=== PATIENT | female | born 1970 ===

== ENCOUNTER 2024-09-12 17:00 | Inpatient (IN) | payer OTHER, SELFPAY ==
[2024-09-12 17:25] VITALS: BP 126/77; PULSE 61; RESP 18; TEMP 36.4; O2SAT 99
[2024-09-12 17:59] VITALS: BMI 31.4
--- NOTE | 2024-09-12 18:52 | PC.ADMIT ---
Bonita was admitted to M3 from [facility] on 09/12/24 for treatment of Bipolar D/O, Cocaine Use and Opioid Use Disorder on a 12b. Skin check completed by this RN and Arelis Andre RN, which revealed bruises on her L clavicle area due to recent fracture. She reports she received the fracture appox 2 weeks ago while in the hospital and was dropped off the bed. Admission not completed and passed on to oncoming RN. She denied SI/HI/AH but reports constant VH of shadows and spirits that do not go away. She has a sling for her L clavicle fracture and was placed on 5 minute checks. She was accepting of the flu shot but was verified that she has received prior to arrival on 09/08/24 by pharmacy.
--- NOTE | 2024-09-12 18:53 | HE.PHANOTE ---
METHADONE Dose: 170mg, last dose 09/12/24 @0800 at [facility] geoff Pedraza RN.
[2024-09-12 19:33] LABS: Alanine Aminotransferase 27 U/L (0-31); Albumin Level 3.6 g/dL (3.5-5.0); Alkaline Phosphatase 115 U/L (39-117); Anion Gap 15 (12-20); Aspartate Amino Transferase 25 U/L (5-31); Bilirubin Total 0.5 mg/dL (0.0-1.0); Blood Urea Nitrogen 26 mg/dL (9-16); Calcium 8.9 mg/dL (8.4-10.2); Carbon Dioxide 28 mmol/L (22-29); Chloride 103 mmol/L (96-108); Creatinine Clr Calc Pharmacy 88.1; Estimated Glomerular Filt Rate > 60; Glucose Random 80 mg/dL (60-115); Potassium 4.1 mmol/L (3.3-5.1); Sodium 142 mmol/L (135-145); Total Protein 7.8 g/dL (6.5-8.0)
[2024-09-12 20:00] VITALS: BP 100/60; PULSE 60; RESP 16; TEMP 36.4; O2SAT 97
[2024-09-12] MEDS: Thiamine HCL 100 MG TABLET PO (20:14)
[2024-09-12] MEDS: Loperamide HCl 2 MG CAPSULE PO (20:15)
[2024-09-12] MEDS: levETIRAcetam 500 MG TABLET PO (20:15)
[2024-09-12] MEDS: oxyCODONE HCl Immed Release 5 MG TABLET 10 MG PO (20:15)
[2024-09-12] MEDS: Gabapentin 300 MG CAPSULE PO (20:16)
[2024-09-12] MEDS: OLANZapine 5 MG TABLET PO (20:16)
[2024-09-12] MEDS: valACYclovir HCL 500 MG TABLET PO (20:16)
[2024-09-12] MEDS: cloNIDine HCL 0.1 MG TABLET PO (20:16)
[2024-09-12] MEDS: Divalproex Sodium ER 500 MG TAB.ER.24H PO (20:17)
[2024-09-12] MEDS: traZODone HCL 50 MG TABLET PO (20:28)
[2024-09-12] MEDS: LORazepam 1 MG TABLET 2 MG PO (20:29)
[2024-09-13] MEDS: Loperamide HCl 2 MG CAPSULE PO ×2 (05:45→21:01)
[2024-09-13] MEDS: Omeprazole 20 MG CAPSULE.DR PO (05:45)
[2024-09-13] MEDS: hydrOXYzine HCL 25 MG TABLET PO ×2 (05:46→22:23)
[2024-09-13 08:00] VITALS: BP 134/75; PULSE 75; RESP 14; TEMP 36.6; O2SAT 100
--- NOTE | 2024-09-13 08:36 | HO.PSYADMNOT ---
HPI Date of Service: 09/13/24 Chief Complaint: Unspecified depressive disorder Sources of Information: patient interviewed (saw pt who was too obtunded to interview, then when she ate lunch became too agitated to interview- only perseverating on her spilled brownie sunday), chart reviewed and crisis/core team assessment reviewed HPI Subjective Notes: Section 12B Healthcare Proxy: No Guardianship: No Medical Problems Affecting Mental Status: Yes (broken ? clavicle) Narrative: 54 yo WF who presented from [facility] where she is known- co visual and auditory hallucinations when awake pacing, otherwise sedated co anxiety depression and suicidal thinking at [facility] ER- Here on unit she is behaving irratically with diarrhea and not attempting to manage her ADLs- spilled apple juice and crackers on floor next to her bed- later brownie sunday on floor that she accuses others of doing- Was so sedated when she was awoken for interview with me she sat up and fell asleep sitting up almost immediately- Had her seen by Claritza Juarez who agreed with holding all sedating medications- like gabapentin , lorazepam (not alcohol primary problem) and hold percocet- reports constant VH of shadows and spirits that do not go away. on intake but pt has not participated fully in nursing intake or with this provider's interview. Nursing reports this diarrhea has been know to [facility] nursing in past behavior. Past Psychiatric History: very little information though hospitalized at [facility] 2 wks ago where she got broken clavicle- Medical Evaluation Reviewed: Hospitalist Isabelal Pending on 5 min checks due to sling for clavicle. [facility] Narrative: further information needed- Family History: unobtainable Social History: unknown Substance History: hx opiate abuse - cocaine Trauma History: unobtained Diagnostics Vital Signs (24Hr): Vital Signs - 24 hr 09/12/24 17:25 09/12/24 20:00 Temperature 97.6 F 97.5 F Pulse Rate 61 60 Respiratory Rate 18 16 Blood Pressure 126/77 100/60 Pulse Oximetry 99 97 Oxygen Delivery Method Room Air Room Air BMI result Body Mass Index 31.4 Labs 09/12/24 19:10 Labs: Laboratory Results - last 48 hr 09/12/24 19:10 Sodium 142 Potassium 4.1 Chloride 103 Carbon Dioxide 28 Anion Gap 15 BUN 26 H Creatinine 0.75 Estim Creat Clear Calc 88.1 Estimated GFR > 60 Random Glucose 80 Calcium 8.9 Total Bilirubin 0.5 AST 25 ALT 27 Alkaline Phosphatase 115 Total Protein 7.8 Albumin 3.6 Meds/Allergies Meds Home Medications ?Medication ?Instructions ?Recorded ?Confirmed ?Type albuterol sulfate 90 mcg/actuation 90 mcg inhalation QID PRN 09/12/24 09/12/24 History aerosol inhaler (Ventolin HFA) Shortness Of Breath Or Wheezing aspirin 81 mg tablet,delayed 81 mg PO DAILY 09/12/24 09/12/24 History release clonidine HCl 0.1 mg tablet 0.1 mg 3XD 09/12/24 09/12/24 History divalproex 500 mg tablet,extended 500 mg PO BEDTIME 09/12/24 09/12/24 History release 24 hr fluticasone propionate 110 110 mcg inhalation BID 09/12/24 09/12/24 History mcg/actuation HFA aerosol inhaler levetiracetam 500 mg tablet 500 mg PO USEASDIRECTD 09/12/24 09/12/24 History methadone 10 mg/mL oral concentrate 170 mg PO DAILY 09/12/24 09/12/24 History olanzapine 5 mg tablet 5 mg PO BEDTIME 09/12/24 09/12/24 History oxycodone 10 mg tablet 10 mg PO Q6H PRN pain 09/12/24 09/12/24 History pantoprazole 40 mg tablet,delayed 40 mg PO DAILY 09/12/24 09/12/24 History release trazodone 50 mg tablet 50 mg PO BEDTIME PRN insomnia 09/12/24 09/12/24 History valacyclovir 500 mg tablet 500 mg PO USEASDIRECTD 09/12/24 09/12/24 History venlafaxine 75 mg capsule,extended 75 mg PO DAILY 09/12/24 09/12/24 History release 24 hr Allergies Allergies Allergy/AdvReac Type Severity Reaction Status Date / Time Iodinated Contrast Media Allergy Unknown Verified 09/12/24 17:21 [Contrast Dye] onion Allergy Unknown Verified 09/12/24 17:21 Penicillins Allergy Unknown Verified 09/12/24 17:21 Mental Status Exam Mental Status Exam Patient Appearance: Disheveled and Unkempt Patient Orientation: Person Level of Consciousness: Obtunded Patient Behavior: Restless, Resistive to Care, Confused and Poor Eye Contact Mood Description: Angry (irritable) Affect Description: Labile Patient Cognition Impaired: Yes Ability to Follow Directions: Poor Speech Pattern: Slurred Hallucinations: Auditory and Visual Thought Process: Distracted Thought Content: positive for Disorganized Depressive Symptoms: Diff. Making Decisions Abnormal Motor Activity Signs and Symptoms: Restlessness Judgement: Poor Assessment & Plan Assessment & Plan (1) Opioid use disorder, severe, dependence: Status: Acute Code(s): F11.20 - Opioid dependence, uncomplicated Assessment and Plan: on methadone, seen by addiction medicine who will split dose for methadone tomorrow holding percocet for now if broke clavicle 2 wks ago unclear if needed- also on methadone (2) Mood disorder: Status: Acute Code(s): F39 - Unspecified mood [affective] disorder Assessment and Plan: hold gabapentin given excess sedation offered olanzapine hs and prn as alternative for now (3) Cocaine abuse: Status: Acute Code(s): F14.10 - Cocaine abuse, uncomplicated Plan further data gathering when patient more able to cooperate- Patient educated on: substance abuse Informed Consent: further education needed Reason for continued inpatient stay Substantial Risk for: inability to function and rapid decompensation Statement Statement: I have reviewed the history and physical and performed a pertinent examination on my patient. No changes have occurred unless specified. If the History and Physical was not performed prior to admission, the Hospitalist's service will be consulted for completing the admission physical. Time Spent With Patient Time: Total time managing care of this patient today ____ minutes.
[2024-09-13] MEDS: methADONE HCl 20 MG/2 ML ORAL.CONC 170 MG PO (08:40)
[2024-09-13] MEDS: Thiamine HCL 100 MG TABLET PO (09:21)
[2024-09-13] MEDS: Folic Acid 1 MG TABLET PO (09:21)
[2024-09-13] MEDS: Gabapentin 300 MG CAPSULE PO (09:21)
[2024-09-13] MEDS: valACYclovir HCL 500 MG TABLET PO ×2 (09:22→21:01)
[2024-09-13] MEDS: levETIRAcetam 500 MG TABLET PO ×2 (09:22→21:01)
[2024-09-13] MEDS: Aspirin Enteric Coated 81 MG TABLET.DR PO (09:22)
[2024-09-13] MEDS: Venlafaxine HCl ER 75 MG CAP.ER.24H PO (09:22)
[2024-09-13 09:23] VITALS: BP 134/75
[2024-09-13] MEDS: cloNIDine HCL 0.1 MG TABLET PO (09:23)
[2024-09-13] MEDS: oxyCODONE HCl Immed Release 5 MG TABLET 10 MG PO (09:36)
[2024-09-13] MEDS: LORazepam 1 MG TABLET PO (09:36)
[2024-09-13 12:39] VITALS: BP 124/89; PULSE 81; RESP 16; TEMP 36.9; O2SAT 97
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
[2024-09-13] MEDS: OLANZapine 5 MG TABLET PO ×3 (17:20→22:23)
[2024-09-13 20:00] VITALS: BP 149/76; PULSE 100; RESP 16; TEMP 36.6; O2SAT 96
[2024-09-13] MEDS: Divalproex Sodium ER 500 MG TAB.ER.24H PO (21:01)
[2024-09-13] MEDS: traZODone HCL 50 MG TABLET PO (21:02)
[2024-09-13] MEDS: Acetaminophen 325 MG TABLET 650 MG PO (22:22)
--- NOTE | 2024-09-14 00:56 | PC.NURSE ---
high fall intervention added-patient is on keppra and reports HX of seizure.
[2024-09-14 08:00] VITALS: BP 137/94; PULSE 79; RESP 15; TEMP 36.5; O2SAT 97
[2024-09-14] MEDS: methADONE HCl 20 MG/2 ML ORAL.CONC 85 MG PO (08:07)
[2024-09-14] MEDS: Fluticasone Propionate 100 MCG BLST.W.DEV 1 PUFF INHALE (08:32)
[2024-09-14] MEDS: Aspirin Enteric Coated 81 MG TABLET.DR PO (08:34)
[2024-09-14] MEDS: Venlafaxine HCl ER 75 MG CAP.ER.24H PO (08:34)
[2024-09-14] MEDS: Thiamine HCL 100 MG TABLET PO (08:34)
[2024-09-14] MEDS: valACYclovir HCL 500 MG TABLET PO ×2 (08:34→20:21)
[2024-09-14] MEDS: Omeprazole 20 MG CAPSULE.DR PO (08:35)
[2024-09-14] MEDS: Folic Acid 1 MG TABLET PO (08:35)
[2024-09-14] MEDS: levETIRAcetam 500 MG TABLET PO ×2 (08:35→20:21)
[2024-09-14] MEDS: OLANZapine 5 MG TABLET PO ×2 (09:14→20:21)
--- NOTE | 2024-09-14 09:25 | HO.PSYCHPN ---
Subjective Subjective Date of Service: 09/14/24 Reason For Visit: Unspecified depressive disorder Subjective Notes: Section 12B Healthcare Proxy: No Guardianship: No Medical Problems Affecting Mental Status: No (though she says she has pain in clavicle- from break) Interim History: 54 patient agitated most of day around issues of medications- when came in was overly sedated to point that I could not do interview- and patient couldn't be roused- So meds ativan, percocet and gabapentin where held yesterday- and today methadone was split dose- Angry about us giving lower dose saying that's illegal and your going to kill me Gave test dose of 200mg gabapentin this am and pt was still awake until 2nd dose methadone at 2pm then fell asleep - again- We have been offering olanzapine prns- She told me she [place] and wishes she had not been found and - she was giving up anyway- Wonder if she might benefit from sec 35? Claritza Juarez, instructional services specialist , has been following patient closely with this provider over last day. Medication Compliance: Yes Side effects from medications: Yes (oversedation, ) Attending Groups: No (pt intrussive with staff and patients alike and generally disruptive on unit) Review of Systems Acute medical concerns: No outside over medication and broken clavicle- where she co xs pain and has been on percocet x 2 wks we have now held this Medical Review of Systems: unchanged Mental Status Exam Mental Status Exam Patient Appearance: Disheveled and Unkempt Patient Orientation: Person, Place and Situation Level of Consciousness: Awake Patient Behavior: Talkative, Hyperactive, Restless, Belligerent (at times), Swearing, Resistive to Care, Invasion - Personal Space, Distractible, Impulsive and Poor Eye Contact Mood Description: Hostile and Anxious Affect Description: Labile Patient Cognition Impaired: No Ability to Follow Directions: Poor Speech Pattern: Rapid and Poor Articulation Hallucinations: None Thought Process: Distracted Thought Content: positive for Flight of Ideas and positive for Disorganized Depressive Symptoms: Increased Irritability and Difficulty Concentrating Abnormal Motor Activity Signs and Symptoms: Hyperactivity and Restlessness Judgement: Poor Diagnostics Vital Signs (24Hr): Vital Signs - 24 hr 09/13/24 12:39 09/13/24 20:00 09/14/24 08:00 Temperature 98.4 F 97.8 F 97.7 F Pulse Rate 81 100 79 Respiratory Rate 16 16 15 Blood Pressure 124/89 149/76 H 137/94 H Pulse Oximetry 97 96 97 Oxygen Delivery Method Room Air Room Air Room Air BMI result Body Mass Index 31.4 Labs 09/12/24 19:10 Labs: Laboratory Results - last 48 hr 09/12/24 19:10 Sodium 142 Potassium 4.1 Chloride 103 Carbon Dioxide 28 Anion Gap 15 BUN 26 H Creatinine 0.75 Estim Creat Clear Calc 88.1 Estimated GFR > 60 Random Glucose 80 Calcium 8.9 Total Bilirubin 0.5 AST 25 ALT 27 Alkaline Phosphatase 115 Total Protein 7.8 Albumin 3.6 Medications Medications Current Medications Acetaminophen (Acetaminophen 325 Mg Tablet) 650 mg PO Q6H PRN PRN Reason: Headache/Pain Mild Scale (1-9) Last Admin: 09/13/24 22:22 Dose: 650 mg Al Hydroxide/Mg Hydroxide (Magnesium Hydrox/Alum Hydrox 30 Ml Oral.Susp) 30 ml PO Q6H PRN PRN Reason: Heartburn/Nausea Albuterol Sulfate (Albuterol Sulfate 90 Mcg 8 Gm Inhaler) 1 puff INHALE QID PRN PRN Reason: Shortness Of Breath Or Wheezing Aspirin (Aspirin Enteric Coated 81 Mg Tablet.Dr) 81 mg PO DAILY [facility] Last Admin: 09/14/24 08:34 Dose: 81 mg Divalproex Sodium (Divalproex Sodium Er 500 Mg Tab.Er.24h) 500 mg PO BEDTIME [facility] Last Admin: 09/13/24 21:01 Dose: 500 mg Fluticasone Propionate (Fluticasone Propionate 100 Mcg Blst.W.Dev) 1 puff INHALE RBID [facility] Last Admin: 09/14/24 08:32 Dose: 1 puff Folic Acid (Folic Acid 1 Mg Tablet) 1 mg PO DAILY [facility] Last Admin: 09/14/24 08:35 Dose: 1 mg Gabapentin (Gabapentin 300 Mg Capsule) 300 mg PO TID [facility] Stop: 09/14/24 23:00 Last Admin: 09/13/24 15:04 Dose: Not Given Hydroxyzine HCl (Hydroxyzine Hcl 25 Mg Tablet) 25 mg PO Q6H PRN PRN Reason: mild anxiety Last Admin: 09/13/24 22:23 Dose: 25 mg Ibuprofen (Ibuprofen 800 Mg Tablet) 800 mg PO Q8H PRN PRN Reason: Moderate to severe pain Levetiracetam (Levetiracetam 500 Mg Tablet) 500 mg PO BID [facility] Last Admin: 09/14/24 08:35 Dose: 500 mg Loperamide HCl (Loperamide Hcl 2 Mg Capsule) 2 mg PO Q4H PRN PRN Reason: loose stool Last Admin: 09/13/24 21:01 Dose: 2 mg Magnesium Hydroxide (Milk Of Magnesia 30 Ml Oral.Susp) 30 ml PO DAILY PRN PRN Reason: Constipation Methadone HCl (Methadone Hcl 20 Mg/2 Ml Oral.Conc) 85 mg PO DAILY@0800 [facility] Last Admin: 09/14/24 08:07 Dose: 85 mg Nicotine (Nicotine 21 Mg Patch.Td24) 21 mg TRANSDERMA DAILY PRN PRN Reason: smoking cessation Nicotine Polacrilex (Nicotine Polacrilex 2 Mg Gum) 4 mg BUCCAL Q2H PRN PRN Reason: Nicotine Cravings Olanzapine (Olanzapine 5 Mg Tablet) 5 mg PO BEDTIME [facility] Last Admin: 09/13/24 21:02 Dose: 5 mg Olanzapine (Olanzapine 5 Mg Tablet) 5 mg PO Q4H PRN PRN Reason: Anxiety Last Admin: 09/14/24 09:14 Dose: 5 mg Omeprazole (Omeprazole 20 Mg Capsule.Dr) 20 mg PO DAILY@0630 [facility] Last Admin: 09/14/24 08:35 Dose: 20 mg Oxycodone HCl (Oxycodone Hcl Immed Release 5 Mg Tablet) 10 mg PO Q6H PRN PRN Reason: severe pain for clavical fract Last Admin: 09/13/24 09:36 Dose: 10 mg Thiamine HCl (Thiamine Hcl 100 Mg Tablet) 100 mg PO DAILY [facility] Last Admin: 09/14/24 08:34 Dose: 100 mg Trazodone HCl (Trazodone Hcl 50 Mg Tablet) 50 mg PO BEDTIME MRX1 PRN PRN Reason: Insomnia Last Admin: 09/13/24 21:02 Dose: 50 mg Trazodone HCl (Trazodone Hcl 50 Mg Tablet) 50 mg PO BEDTIME PRN PRN Reason: insomnia Valacyclovir HCl (Valacyclovir Hcl 500 Mg Tablet) 500 mg PO BID [facility] Last Admin: 09/14/24 08:34 Dose: 500 mg Venlafaxine HCl (Venlafaxine Hcl Er 75 Mg Cap.Er.24h) 75 mg PO DAILY [facility] Last Admin: 09/14/24 08:34 Dose: 75 mg Allergies Allergies Allergy/AdvReac Type Severity Reaction Status Date / Time Iodinated Contrast Media Allergy Unknown Verified 09/12/24 17:21 [Contrast Dye] onion Allergy Unknown Verified 09/12/24 17:21 Penicillins Allergy Unknown Verified 09/12/24 17:21 Assessment & Plan Assessment & Plan (1) Opioid use disorder, severe, dependence: Status: Acute Code(s): F11.20 - Opioid dependence, uncomplicated Assessment and Plan: on methadone, seen by addiction medicine who will split dose for methadone tomorrow holding percocet for now if broke clavicle 2 wks ago unclear if needed- also on methadone (2) Mood disorder: Status: Acute Code(s): F39 - Unspecified mood [affective] disorder Assessment and Plan: hold gabapentin given excess sedation offered olanzapine hs and prn as alternative for now (3) Cocaine abuse: Status: Acute Code(s): F14.10 - Cocaine abuse, uncomplicated Plan further data gathering when patient more able to cooperate- Patient educated on: medication risk/benefits and substance abuse Informed Consent: further education needed Reason for continued inpatient stay Substantial Risk for: harm to self, inability to function and med/psych decompensation Time Spent With Patient Time: Total time managing care of this patient today ____ minutes.
[2024-09-14] MEDS: Gabapentin 100 MG CAPSULE 200 MG PO (10:25)
[2024-09-14] MEDS: Nicotine 21 MG PATCH.TD24 TRANSDERMA (10:31)
[2024-09-14] MEDS: methADONE HCl 20 MG/2 ML ORAL.CONC 60 MG PO (13:53)
[2024-09-14] MEDS: Ibuprofen 800 MG TABLET PO (14:38)
--- NOTE | 2024-09-14 15:11 | PM.EVENT ---
Event Note Date of Service: 09/14/24 Event Note: Addiction note: Discussed case with RN and covering provider (Dr. HURST) Patient more alert today overall, following methadone 85mg dose in AM Added methadone 60mg this afternoon for a total of 145mg After second dose of methadone, RN notified t/w that patient was appearing more sedated, eyes closed while standing Plan: -methadone 100mg tomorrow AM (09/15) -no PM dose -utilize PRN meds for agitation Time Spent With Patient Time: Total time managing care of this patient today ____ minutes.
[2024-09-14 19:43] VITALS: BP 125/73; PULSE 72; TEMP 36.6; O2SAT 96
[2024-09-14] MEDS: traZODone HCL 50 MG TABLET PO (20:21)
[2024-09-14] MEDS: hydrOXYzine HCL 25 MG TABLET PO (20:21)
[2024-09-14] MEDS: Divalproex Sodium ER 500 MG TAB.ER.24H PO (20:21)
[2024-09-14] MEDS: Acetaminophen 325 MG TABLET 650 MG PO (20:22)
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
[2024-09-15] MEDS: hydrOXYzine HCL 25 MG TABLET PO ×2 (03:40→20:27)
[2024-09-15] MEDS: Omeprazole 20 MG CAPSULE.DR PO (05:31)
[2024-09-15 07:45] VITALS: BP 174/82; PULSE 70; RESP 16; TEMP 36.4; O2SAT 99
[2024-09-15] MEDS: methADONE HCl 20 MG/2 ML ORAL.CONC 100 MG PO (08:05)
[2024-09-15] MEDS: levETIRAcetam 500 MG TABLET PO ×2 (09:19→20:27)
[2024-09-15] MEDS: Aspirin Enteric Coated 81 MG TABLET.DR PO (09:19)
[2024-09-15] MEDS: Thiamine HCL 100 MG TABLET PO (09:19)
[2024-09-15] MEDS: valACYclovir HCL 500 MG TABLET PO ×2 (09:19→20:27)
[2024-09-15] MEDS: Folic Acid 1 MG TABLET PO (09:20)
[2024-09-15] MEDS: Venlafaxine HCl ER 75 MG CAP.ER.24H PO (09:20)
[2024-09-15] MEDS: Fluticasone Propionate 100 MCG BLST.W.DEV 1 PUFF INHALE (09:22)
[2024-09-15] MEDS: Nicotine 21 MG PATCH.TD24 TRANSDERMA (09:24)
[2024-09-15] MEDS: OLANZapine 5 MG TABLET PO ×3 (10:14→20:27)
--- NOTE | 2024-09-15 12:38 | P.PNPSI_ITS ---
Subjective Subjective Date of Service: 09/15/24 Reason For Visit: Unspecified depressive disorder Subjective Notes: Section 12B Interim History: Active on unit. 12b up on 09/17/24. Pt reports feeling frustrated because my meds were changed . focused on medications. Pt stated, I don't want to kill myself. I want my meds back to where they were . Discussed notes reported pt was sedated over the weekend; which pt denies and states her eyes are closed because I'm channeling spirits . denies SI/HI/VH/AH. Medication Compliance: Yes Side effects from medications: No Attending Groups: Intermittent Mental Status Exam Mental Status Exam Narrative: Pt is alert and oriented; behavior is cooperative, irritable; dressed in casual attire; mood is described as frustrated ; eye contact appropriate; Speech is normal rate, loud volume; thought process is goal directed; Thought content is focused on medications; denies SI/HI/VH/AH. Diagnostics Vital Signs (24Hr): Vital Signs - 24 hr 09/14/24 19:43 09/15/24 07:45 Temperature 97.8 F 97.5 F Pulse Rate 72 70 Respiratory Rate 16 Blood Pressure 125/73 174/82 H Pulse Oximetry 96 99 Oxygen Delivery Method Room Air Room Air BMI result Body Mass Index 31.4 Labs 09/12/24 19:10 Medications Medications Current Medications Acetaminophen (Acetaminophen 325 Mg Tablet) 650 mg PO Q6H PRN PRN Reason: Headache/Pain Mild Scale (1-9) Last Admin: 09/14/24 20:22 Dose: 650 mg Al Hydroxide/Mg Hydroxide (Magnesium Hydrox/Alum Hydrox 30 Ml Oral.Susp) 30 ml PO Q6H PRN PRN Reason: Heartburn/Nausea Albuterol Sulfate (Albuterol Sulfate 90 Mcg 8 Gm Inhaler) 1 puff INHALE QID PRN PRN Reason: Shortness Of Breath Or Wheezing Aspirin (Aspirin Enteric Coated 81 Mg Tablet.Dr) 81 mg PO DAILY [facility] Last Admin: 09/15/24 09:19 Dose: 81 mg Divalproex Sodium (Divalproex Sodium Er 500 Mg Tab.Er.24h) 500 mg PO BEDTIME [facility] Last Admin: 09/14/24 20:21 Dose: 500 mg Fluticasone Propionate (Fluticasone Propionate 100 Mcg Blst.W.Dev) 1 puff INHALE RBID [facility] Last Admin: 09/15/24 09:22 Dose: 1 puff Folic Acid (Folic Acid 1 Mg Tablet) 1 mg PO DAILY [facility] Last Admin: 09/15/24 09:20 Dose: 1 mg Hydroxyzine HCl (Hydroxyzine Hcl 25 Mg Tablet) 25 mg PO Q6H PRN PRN Reason: mild anxiety Last Admin: 09/15/24 03:40 Dose: 25 mg Ibuprofen (Ibuprofen 800 Mg Tablet) 800 mg PO Q8H PRN PRN Reason: Moderate to severe pain Last Admin: 09/14/24 14:38 Dose: 800 mg Levetiracetam (Levetiracetam 500 Mg Tablet) 500 mg PO BID [facility] Last Admin: 09/15/24 09:19 Dose: 500 mg Loperamide HCl (Loperamide Hcl 2 Mg Capsule) 2 mg PO Q4H PRN PRN Reason: loose stool Last Admin: 09/13/24 21:01 Dose: 2 mg Magnesium Hydroxide (Milk Of Magnesia 30 Ml Oral.Susp) 30 ml PO DAILY PRN PRN Reason: Constipation Methadone HCl (Methadone Hcl 20 Mg/2 Ml Oral.Conc) 100 mg PO DAILY@0800 [facility] Last Admin: 09/15/24 08:05 Dose: 100 mg Nicotine (Nicotine 21 Mg Patch.Td24) 21 mg TRANSDERMA DAILY PRN PRN Reason: smoking cessation Last Admin: 09/15/24 09:24 Dose: 21 mg Nicotine Polacrilex (Nicotine Polacrilex 2 Mg Gum) 4 mg BUCCAL Q2H PRN PRN Reason: Nicotine Cravings Olanzapine (Olanzapine 5 Mg Tablet) 5 mg PO BEDTIME [facility] Last Admin: 09/14/24 20:21 Dose: 5 mg Olanzapine (Olanzapine 5 Mg Tablet) 5 mg PO Q4H PRN PRN Reason: Anxiety Last Admin: 09/15/24 10:14 Dose: 5 mg Omeprazole (Omeprazole 20 Mg Capsule.Dr) 20 mg PO DAILY@0630 [facility] Last Admin: 09/15/24 05:31 Dose: 20 mg Oxycodone HCl (Oxycodone Hcl Immed Release 5 Mg Tablet) 10 mg PO Q6H PRN PRN Reason: severe pain for clavical fract Last Admin: 09/13/24 09:36 Dose: 10 mg Thiamine HCl (Thiamine Hcl 100 Mg Tablet) 100 mg PO DAILY [facility] Last Admin: 09/15/24 09:19 Dose: 100 mg Trazodone HCl (Trazodone Hcl 50 Mg Tablet) 50 mg PO BEDTIME MRX1 PRN PRN Reason: Insomnia Last Admin: 09/14/24 20:21 Dose: 50 mg Trazodone HCl (Trazodone Hcl 50 Mg Tablet) 50 mg PO BEDTIME PRN PRN Reason: insomnia Valacyclovir HCl (Valacyclovir Hcl 500 Mg Tablet) 500 mg PO BID [facility] Last Admin: 09/15/24 09:19 Dose: 500 mg Venlafaxine HCl (Venlafaxine Hcl Er 75 Mg Cap.Er.24h) 75 mg PO DAILY [facility] Last Admin: 09/15/24 09:20 Dose: 75 mg Allergies Allergies Allergy/AdvReac Type Severity Reaction Status Date / Time Iodinated Contrast Media Allergy Unknown Verified 09/12/24 17:21 [Contrast Dye] onion Allergy Unknown Verified 09/12/24 17:21 Penicillins Allergy Unknown Verified 09/12/24 17:21 Assessment & Plan Assessment & Plan (1) Mood disorder: Status: Acute Code(s): F39 - Unspecified mood [affective] disorder Assessment and Plan: hold gabapentin given excess sedation offered olanzapine hs and prn as alternative for now (2) Opioid use disorder, severe, dependence: Status: Acute Code(s): F11.20 - Opioid dependence, uncomplicated Assessment and Plan: on methadone, seen by addiction medicine who will split dose for methadone tomorrow holding percocet for now if broke clavicle 2 wks ago unclear if needed- also on methadone (3) Cocaine abuse: Status: Acute Code(s): F14.10 - Cocaine abuse, uncomplicated Plan 09/14/24: 54 patient agitated most of day around issues of medications- when came in was overly sedated to point that I could not do interview- and patient couldn't be roused- So meds ativan, percocet and gabapentin where held yesterday- and today methadone was split dose- Angry about us giving lower dose saying that's illegal and your going to kill me Gave test dose of 200mg gabapentin this am and pt was still awake until 2nd dose methadone at 2pm then fell asleep - again- We have been offering olanzapine prns- She [place] and wishes she had not been found and - she was giving up anyway- Wonder if she might benefit from sec 35? Claritza Juarez, security management specialist , has been following patient closely with this provider over last day.further data gathering when patient more able to cooperate- 09/15: Active on unit. 12b up on 09/17/24. Pt reports feeling frustrated because my meds were changed . focused on medications. Pt stated, I don't want to kill myself. I want my meds back to where they were . Discussed notes reported pt was sedated over the weekend; which pt denies and states her eyes are closed because I'm channeling spirits .per nursing, slept 8 hours last night. denies SI/HI/VH/AH. Continue current medication regimen. Patient educated on: diagnosis and medication risk/benefits Reason for continued inpatient stay Substantial Risk for: med/psych decompensation Time Spent With Patient Time: Total time managing care of this patient today _20___ minutes.
[2024-09-15] MEDS: Acetaminophen 325 MG TABLET 650 MG PO (17:03)
[2024-09-15] MEDS: Ibuprofen 800 MG TABLET PO (17:03)
[2024-09-15 20:16] VITALS: RESP 18
[2024-09-15] MEDS: Divalproex Sodium ER 500 MG TAB.ER.24H PO (20:27)
[2024-09-15] MEDS: traZODone HCL 50 MG TABLET PO (20:27)
[2024-09-16] MEDS: traZODone HCL 50 MG TABLET PO ×3 (00:07→22:06)
[2024-09-16] MEDS: Omeprazole 20 MG CAPSULE.DR PO (06:31)
[2024-09-16 07:55] VITALS: BP 178/115; PULSE 76; RESP 20; TEMP 36.6; O2SAT 98
[2024-09-16] MEDS: methADONE HCl 20 MG/2 ML ORAL.CONC 125 MG PO (08:02)
[2024-09-16] MEDS: Fluticasone Propionate 100 MCG BLST.W.DEV 1 PUFF INHALE ×2 (08:30→20:51)
[2024-09-16] MEDS: levETIRAcetam 500 MG TABLET PO ×2 (08:31→20:52)
[2024-09-16] MEDS: Venlafaxine HCl ER 75 MG CAP.ER.24H PO (08:31)
[2024-09-16] MEDS: Thiamine HCL 100 MG TABLET PO (08:31)
[2024-09-16] MEDS: Aspirin Enteric Coated 81 MG TABLET.DR PO (08:31)
[2024-09-16] MEDS: valACYclovir HCL 500 MG TABLET PO ×2 (08:31→20:51)
[2024-09-16] MEDS: Folic Acid 1 MG TABLET PO (08:31)
[2024-09-16] MEDS: Nicotine 21 MG PATCH.TD24 TRANSDERMA (08:57)
--- NOTE | 2024-09-16 12:31 | P.PNPSI_ITS ---
Subjective Subjective Date of Service: 09/16/24 Reason For Visit: Unspecified depressive disorder Subjective Notes: Conditional Voluntary Interim History: Active on unit, social with peers. Pt continues focused on methadone dose. She reports feeling okay today; observed laughing and joking with peers and staff. Pt states she is focused on staying clean and not using . Pt report she plans on presenting to [facility] in [place], [place] for substance abuse treatment. denies SI/HI/VH/AH. Per nursing, slept 8 hours last night. Medication Compliance: Yes Side effects from medications: No Attending Groups: Intermittent Mental Status Exam Mental Status Exam Narrative: Pt is alert and oriented; behavior is cooperative; dressed in casual attire; mood is described as good ; eye contact appropriate; Speech is normal rate, volume, not pressured; thought process is goal directed; Thought content is focused on sobriety; denies SI/HI/VH/AH. Diagnostics Vital Signs (24Hr): Vital Signs - 24 hr 09/15/24 20:16 09/16/24 07:55 Temperature 97.8 F Pulse Rate 76 Respiratory Rate 18 20 Blood Pressure 178/115 H Pulse Oximetry 98 Oxygen Delivery Method Room Air BMI result Body Mass Index 31.4 Labs 09/12/24 19:10 Labs: Laboratory Results - last 48 hr 09/12/24 19:10 Sodium 142 Potassium 4.1 Chloride 103 Carbon Dioxide 28 Anion Gap 15 BUN 26 H Creatinine 0.75 Estim Creat Clear Calc 88.1 Estimated GFR > 60 Random Glucose 80 Calcium 8.9 Total Bilirubin 0.5 AST 25 ALT 27 Alkaline Phosphatase 115 Total Protein 7.8 Albumin 3.6 Medications Medications Current Medications Acetaminophen (Acetaminophen 325 Mg Tablet) 650 mg PO Q6H PRN PRN Reason: Headache/Pain Mild Scale (1-9) Last Admin: 09/15/24 17:03 Dose: 650 mg Al Hydroxide/Mg Hydroxide (Magnesium Hydrox/Alum Hydrox 30 Ml Oral.Susp) 30 ml PO Q6H PRN PRN Reason: Heartburn/Nausea Albuterol Sulfate (Albuterol Sulfate 90 Mcg 8 Gm Inhaler) 1 puff INHALE QID PRN PRN Reason: Shortness Of Breath Or Wheezing Aspirin (Aspirin Enteric Coated 81 Mg Tablet.) 81 mg PO DAILY [facility] Last Admin: 09/16/24 08:31 Dose: 81 mg Divalproex Sodium (Divalproex Sodium Er 500 Mg Tab.Er.24h) 500 mg PO BEDTIME [facility] Last Admin: 09/15/24 20:27 Dose: 500 mg Fluticasone Propionate (Fluticasone Propionate 100 Mcg Blst.W.Dev) 1 puff INHALE RBID [facility] Last Admin: 09/16/24 08:30 Dose: 1 puff Folic Acid (Folic Acid 1 Mg Tablet) 1 mg PO DAILY [facility] Last Admin: 09/16/24 08:31 Dose: 1 mg Hydroxyzine HCl (Hydroxyzine Hcl 25 Mg Tablet) 25 mg PO Q6H PRN PRN Reason: mild anxiety Last Admin: 09/15/24 20:27 Dose: 25 mg Ibuprofen (Ibuprofen 800 Mg Tablet) 800 mg PO Q8H PRN PRN Reason: Moderate to severe pain Last Admin: 09/15/24 17:03 Dose: 800 mg Levetiracetam (Levetiracetam 500 Mg Tablet) 500 mg PO BID [facility] Last Admin: 09/16/24 08:31 Dose: 500 mg Loperamide HCl (Loperamide Hcl 2 Mg Capsule) 2 mg PO Q4H PRN PRN Reason: loose stool Last Admin: 09/13/24 21:01 Dose: 2 mg Magnesium Hydroxide (Milk Of Magnesia 30 Ml Oral.Susp) 30 ml PO DAILY PRN PRN Reason: Constipation Methadone HCl (Methadone Hcl 20 Mg/2 Ml Oral.Conc) 125 mg PO DAILY [facility] Last Admin: 09/16/24 08:02 Dose: 125 mg Nicotine (Nicotine 21 Mg Patch.Td24) 21 mg TRANSDERMA DAILY PRN PRN Reason: smoking cessation Last Admin: 09/16/24 08:57 Dose: 21 mg Nicotine Polacrilex (Nicotine Polacrilex 2 Mg Gum) 4 mg BUCCAL Q2H PRN PRN Reason: Nicotine Cravings Olanzapine (Olanzapine 5 Mg Tablet) 5 mg PO BEDTIME [facility] Last Admin: 09/15/24 20:27 Dose: 5 mg Olanzapine (Olanzapine 5 Mg Tablet) 5 mg PO Q4H PRN PRN Reason: Anxiety Last Admin: 09/15/24 17:03 Dose: 5 mg Omeprazole (Omeprazole 20 Mg Capsule.Dr) 20 mg PO DAILY@0630 [facility] Last Admin: 09/16/24 06:31 Dose: 20 mg Oxycodone HCl (Oxycodone Hcl Immed Release 5 Mg Tablet) 10 mg PO Q6H PRN PRN Reason: severe pain for clavical fract Last Admin: 09/13/24 09:36 Dose: 10 mg Thiamine HCl (Thiamine Hcl 100 Mg Tablet) 100 mg PO DAILY [facility] Last Admin: 09/16/24 08:31 Dose: 100 mg Trazodone HCl (Trazodone Hcl 50 Mg Tablet) 50 mg PO BEDTIME MRX1 PRN PRN Reason: Insomnia Last Admin: 09/16/24 00:07 Dose: 50 mg Trazodone HCl (Trazodone Hcl 50 Mg Tablet) 50 mg PO BEDTIME PRN PRN Reason: insomnia Valacyclovir HCl (Valacyclovir Hcl 500 Mg Tablet) 500 mg PO BID [facility] Last Admin: 09/16/24 08:31 Dose: 500 mg Venlafaxine HCl (Venlafaxine Hcl Er 75 Mg Cap.Er.24h) 75 mg PO DAILY [facility] Last Admin: 09/16/24 08:31 Dose: 75 mg Allergies Allergies Allergy/AdvReac Type Severity Reaction Status Date / Time Iodinated Contrast Media Allergy Unknown Verified 09/12/24 17:21 [Contrast Dye] onion Allergy Unknown Verified 09/12/24 17:21 Penicillins Allergy Unknown Verified 09/12/24 17:21 Assessment & Plan Assessment & Plan (1) Mood disorder: Status: Acute Code(s): F39 - Unspecified mood [affective] disorder Assessment and Plan: hold gabapentin given excess sedation offered olanzapine hs and prn as alternative for now (2) Opioid use disorder, severe, dependence: Status: Acute Code(s): F11.20 - Opioid dependence, uncomplicated Assessment and Plan: on methadone, seen by addiction medicine who will split dose for methadone tomorrow holding percocet for now if broke clavicle 2 wks ago unclear if needed- also on methadone (3) Cocaine abuse: Status: Acute Code(s): F14.10 - Cocaine abuse, uncomplicated Plan 09/14/24: 54 patient agitated most of day around issues of medications- when came in was overly sedated to point that I could not do interview- and patient couldn't be roused- So meds ativan, percocet and gabapentin where held yesterday- and today methadone was split dose- Angry about us giving lower dose saying that's illegal and your going to kill me Gave test dose of 200mg gabapentin this am and pt was still awake until 2nd dose methadone at 2pm then fell asleep - again- We have been offering olanzapine prns- She told me she was found in a snow [place] and wishes she had not been found and - she was giving up anyway- Wonder if she might benefit from sec 35? Claritza Juarez, piercing specialist , has been following patient closely with this provider over last day.further data gathering when patient more able to cooperate- 09/15: Active on unit. 12b up on 09/17/24. Pt reports feeling frustrated because my meds were changed . focused on medications. Pt stated, I don't want to kill myself. I want my meds back to where they were . Discussed notes reported pt was sedated over the weekend; which pt denies and states her eyes are closed because I'm channeling spirits .per nursing, slept 8 hours last night. denies SI/HI/VH/AH. Continue current medication regimen. 09/16: Active on unit, social with peers. Pt continues focused on methadone dose. She reports feeling okay today; observed laughing and joking with peers and staff. Pt states she is focused on staying clean and not using . Pt report she plans on presenting to [facility] in [place], [place] for substance abuse treatment. denies SI/HI/VH/AH. Per nursing, slept 8 hours last night. Pt to be discharged tomorrow;social work has arraigned a ride [facility] [place]. Patient educated on: diagnosis, medication risk/benefits and therapeutic strategies Reason for continued inpatient stay Substantial Risk for: stable for discharge Time Spent With Patient Time: Total time managing care of this patient today _20___ minutes.
[2024-09-16 15:50] LABS: Ammonia 56 umol/L (13-55)
[2024-09-16 15:54] LABS: Alanine Aminotransferase 23 U/L (0-31); Albumin Level 3.9 g/dL (3.5-5.0); Aspartate Amino Transferase 24 U/L (5-31); Bilirubin Direct 0.1 mg/dL (0.0-0.5); Bilirubin Total 0.3 mg/dL (0.0-1.0); Total Protein 8.7 g/dL (6.5-8.0)
[2024-09-16 17:03] LABS: Valproate 19.6 mcg/mL (50.0-100.0)
[2024-09-16 17:28] LABS: Alkaline Phosphatase 121 U/L (39-117)
[2024-09-16] MEDS: Acetaminophen 325 MG TABLET 650 MG PO (17:42)
[2024-09-16] MEDS: Ibuprofen 800 MG TABLET PO (17:42)
[2024-09-16] MEDS: Lactulose 20 GM/30 ML SOLUTION 40 GM PO (17:43)
[2024-09-16 20:00] VITALS: BP 135/85; PULSE 76; RESP 16; TEMP 36.7; O2SAT 96
--- NOTE | 2024-09-16 20:25 | HO.ADDICTPRO ---
Subjective Subjective Date of Service: 09/16/24 Reason For Visit: Unspecified depressive disorder Interim History: Patient seen in follow up for OUD and methadone dose titration Dose today, 125mg Patient seen in her room on unit. She is awake, alert, appropriate Initially somewhat demanding in regards to her methadone dose, pressured, asking why dose was reduced and why it isn't back to her home dose T/w reminded patient that for the first few days of admission she appeared altered and sedated--provided examples of what was observed, to which she initially denied and stated, no, I was just in pain . After a moment, she was able to accept this, and stated, I am fine, now, I'm awake . T/W acknowledged that patient presented as much more alert and appropriate, and as such dose would continue to be titrated. She requested remainder of her dose today, which was denied--no sx of withdrawal or discomfort noted. Patient agreeable to further dose increase in the morning, and when conversation was completed, verbalized understanding of why dose was decreased as much as it was. Review of Systems Constitutional: Reports as per HPI (reporting body aches ) Mental Status Exam Mental Status Exam Level of Consciousness: Awake, Appropriate and Alert Patient Behavior: Talkative and Cooperative Affect Description: Expansive Speech Pattern: Pressured Diagnostics Vital Signs (24Hr): Vital Signs - 24 hr 09/16/24 07:55 Temperature 97.8 F Pulse Rate 76 Respiratory Rate 20 Blood Pressure 178/115 H Pulse Oximetry 98 Oxygen Delivery Method Room Air BMI result Body Mass Index 31.4 Labs 09/12/24 19:10 Labs: Laboratory Results - last 48 hr 09/12/24 09/16/24 19:10 15:26 Sodium 142 Potassium 4.1 Chloride 103 Carbon Dioxide 28 Anion Gap 15 BUN 26 H Creatinine 0.75 Estim Creat Clear Calc 88.1 Estimated GFR > 60 Random Glucose 80 Calcium 8.9 Total Bilirubin 0.5 0.3 Direct Bilirubin 0.1 AST 25 24 ALT 27 23 Alkaline Phosphatase 115 121 H Ammonia 56 H Total Protein 7.8 8.7 H Albumin 3.6 3.9 Valproic Acid 19.6 L Medications Medications Current Medications Acetaminophen (Acetaminophen 325 Mg Tablet) 650 mg PO Q6H PRN PRN Reason: Headache/Pain Mild Scale (1-9) Last Admin: 09/16/24 17:42 Dose: 650 mg Al Hydroxide/Mg Hydroxide (Magnesium Hydrox/Alum Hydrox 30 Ml Oral.Susp) 30 ml PO Q6H PRN PRN Reason: Heartburn/Nausea Albuterol Sulfate (Albuterol Sulfate 90 Mcg 8 Gm Inhaler) 1 puff INHALE QID PRN PRN Reason: Shortness Of Breath Or Wheezing Aspirin (Aspirin Enteric Coated 81 Mg Tablet.Dr) 81 mg PO DAILY [facility] Last Admin: 09/16/24 08:31 Dose: 81 mg Divalproex Sodium (Divalproex Sodium Er 500 Mg Tab.Er.24h) 500 mg PO BEDTIME [facility] Last Admin: 09/15/24 20:27 Dose: 500 mg Fluticasone Propionate (Fluticasone Propionate 100 Mcg Blst.W.Dev) 1 puff INHALE RBID [facility] Last Admin: 09/16/24 08:30 Dose: 1 puff Folic Acid (Folic Acid 1 Mg Tablet) 1 mg PO DAILY [facility] Last Admin: 09/16/24 08:31 Dose: 1 mg Hydroxyzine HCl (Hydroxyzine Hcl 25 Mg Tablet) 25 mg PO Q6H PRN PRN Reason: mild anxiety Last Admin: 09/15/24 20:27 Dose: 25 mg Ibuprofen (Ibuprofen 800 Mg Tablet) 800 mg PO Q8H PRN PRN Reason: Moderate to severe pain Last Admin: 09/16/24 17:42 Dose: 800 mg Levetiracetam (Levetiracetam 500 Mg Tablet) 500 mg PO BID [facility] Last Admin: 09/16/24 08:31 Dose: 500 mg Loperamide HCl (Loperamide Hcl 2 Mg Capsule) 2 mg PO Q4H PRN PRN Reason: loose stool Last Admin: 09/13/24 21:01 Dose: 2 mg Magnesium Hydroxide (Milk Of Magnesia 30 Ml Oral.Susp) 30 ml PO DAILY PRN PRN Reason: Constipation Methadone HCl (Methadone Hcl 20 Mg/2 Ml Oral.Conc) 125 mg PO DAILY [facility] Last Admin: 09/16/24 08:02 Dose: 125 mg Naloxone HCl (Naloxone Hcl Nasal Take Home 4 Mg [place]) 8 mg NOSTRILALT ONCE ONE Stop: 09/17/24 08:01 Nicotine (Nicotine 21 Mg Patch.Td24) 21 mg TRANSDERMA DAILY PRN PRN Reason: smoking cessation Last Admin: 09/16/24 08:57 Dose: 21 mg Nicotine Polacrilex (Nicotine Polacrilex 2 Mg Gum) 4 mg BUCCAL Q2H PRN PRN Reason: Nicotine Cravings Olanzapine (Olanzapine 5 Mg Tablet) 5 mg PO BEDTIME [facility] Last Admin: 09/15/24 20:27 Dose: 5 mg Olanzapine (Olanzapine 5 Mg Tablet) 5 mg PO Q4H PRN PRN Reason: Anxiety Last Admin: 09/15/24 17:03 Dose: 5 mg Omeprazole (Omeprazole 20 Mg Capsule.Dr) 20 mg PO DAILY@0630 [facility] Last Admin: 09/16/24 06:31 Dose: 20 mg Oxycodone HCl (Oxycodone Hcl Immed Release 5 Mg Tablet) 10 mg PO Q6H PRN PRN Reason: severe pain for clavical fract Last Admin: 09/13/24 09:36 Dose: 10 mg Thiamine HCl (Thiamine Hcl 100 Mg Tablet) 100 mg PO DAILY [facility] Last Admin: 09/16/24 08:31 Dose: 100 mg Trazodone HCl (Trazodone Hcl 50 Mg Tablet) 50 mg PO BEDTIME MRX1 PRN PRN Reason: Insomnia Last Admin: 09/16/24 00:07 Dose: 50 mg Trazodone HCl (Trazodone Hcl 50 Mg Tablet) 50 mg PO BEDTIME PRN PRN Reason: insomnia Valacyclovir HCl (Valacyclovir Hcl 500 Mg Tablet) 500 mg PO BID [facility] Last Admin: 09/16/24 08:31 Dose: 500 mg Venlafaxine HCl (Venlafaxine Hcl Er 75 Mg Cap.Er.24h) 75 mg PO DAILY [facility] Last Admin: 09/16/24 08:31 Dose: 75 mg Allergies Allergies Allergy/AdvReac Type Severity Reaction Status Date / Time Iodinated Contrast Media Allergy Unknown Verified 09/12/24 17:21 [Contrast Dye] onion Allergy Unknown Verified 09/12/24 17:21 Penicillins Allergy Unknown Verified 09/12/24 17:21 Assessment & Plan Assessment & Plan (1) Opioid use disorder, severe, dependence: Status: Acute Code(s): F11.20 - Opioid dependence, uncomplicated Assessment and Plan: methadone dose 140mg in AM --remainder of titration can occur with outpatient providers scheduled to discharge tomorrow Total time managing care of this patient today __20__ minutes.
[2024-09-16] MEDS: OLANZapine 5 MG TABLET PO (20:51)
[2024-09-16] MEDS: Divalproex Sodium ER 500 MG TAB.ER.24H PO (20:52)
[2024-09-17] MEDS: Omeprazole 20 MG CAPSULE.DR PO (06:57)
[2024-09-17 08:00] VITALS: BP 135/90; PULSE 88; RESP 16; TEMP 36.7; O2SAT 97
[2024-09-17] MEDS: methADONE HCl 20 MG/2 ML ORAL.CONC 140 MG PO (08:09)
[2024-09-17] MEDS: Thiamine HCL 100 MG TABLET PO (08:12)
[2024-09-17] MEDS: Fluticasone Propionate 100 MCG BLST.W.DEV 1 PUFF INHALE (08:12)
[2024-09-17] MEDS: valACYclovir HCL 500 MG TABLET PO (08:12)
[2024-09-17] MEDS: Venlafaxine HCl ER 75 MG CAP.ER.24H PO (08:12)
[2024-09-17] MEDS: Folic Acid 1 MG TABLET PO (08:12)
[2024-09-17] MEDS: Naloxone HCl Nasal TAKE HOME 4 MG SPRAY 8 MG NOSTRILALT (08:12)
[2024-09-17] MEDS: Aspirin Enteric Coated 81 MG TABLET.DR PO (08:12)
[2024-09-17] MEDS: levETIRAcetam 500 MG TABLET PO (08:16)
--- NOTE | 2024-09-17 08:28 | P.DS_ITS ---
DS: Providers Provider Date of Service: 09/17/24 Date of admission: 09/12/24 17:00 Date of discharge: 09/17/24 Primary care physician: Unknown Physician Attending physician on admission: Elham Santo Consults: 09/12/24 18:01 Consult to Hospitalist Routine Comment: Consulting Provider: [facility] Hospitalists Reason For Exam: Outside admission 09/12/24 18:51 Addiction Medicine Routine Consulting Provider: Addiction Covering Reason for consultation: Positive AUDIT-C Attending physician on discharge: Ac [facility]air Discharging clinician: Juliana Grant DS: Diagnosis Discharge Diagnosis (1) Opioid use disorder, severe, dependence: Status: Acute DS: Medications Discharge Medications Home Medications: Home Medications ?Medication ?Instructions ?Recorded ?Confirmed albuterol sulfate 90 mcg/actuation 90 mcg inhalation QID PRN 09/12/24 09/12/24 aerosol inhaler (Ventolin HFA) Shortness Of Breath Or Wheezing aspirin 81 mg tablet,delayed 81 mg PO DAILY 09/12/24 09/12/24 release clonidine HCl 0.1 mg tablet 0.1 mg 3XD 09/12/24 09/12/24 fluticasone propionate 110 110 mcg inhalation BID 09/12/24 09/12/24 mcg/actuation HFA aerosol inhaler levetiracetam 500 mg tablet 500 mg PO USEASDIRECTD 09/12/24 09/12/24 oxycodone 10 mg tablet 10 mg PO Q6H PRN pain 09/12/24 09/12/24 pantoprazole 40 mg tablet,delayed 40 mg PO DAILY 09/12/24 09/12/24 release valacyclovir 500 mg tablet 500 mg PO USEASDIRECTD 09/12/24 09/12/24 Previous Rx's ?Medication ?Instructions ?Recorded divalproex 500 mg tablet,extended 500 mg PO BEDTIME 30 days #30 tabs 09/16/24 release 24 hr methadone 10 mg/mL oral 125 mg (12.5 mL) PO DAILY #0 mL 09/16/24 concentrate (Methadose) olanzapine 5 mg tablet 5 mg PO BEDTIME 30 days #30 tabs 09/16/24 trazodone 50 mg tablet 50 mg PO BEDTIME PRN insomnia 30 09/16/24 days #30 tabs venlafaxine 75 mg capsule,extended 75 mg PO DAILY 30 days #30 caps 09/16/24 release 24 hr Mental Status Exam Mental Status Exam Narrative: Pt is alert and oriented; behavior is cooperative; dressed in casual attire; mood is described as good ; eye contact appropriate; Speech is normal rate, volume, not pressured; thought process is goal directed; Thought content is focused on sobriety; denies SI/HI/VH/AH. Data Data Completed and Pending Completed studies during hospitalization [Text1]: 09/12/24 09/16/24 19:10 15:26 Sodium 142 Potassium 4.1 Chloride 103 Carbon Dioxide 28 Anion Gap 15 BUN 26 H Creatinine 0.75 Estim Creat Clear Calc 88.1 Estimated GFR > 60 Random Glucose 80 Calcium 8.9 Total Bilirubin 0.5 0.3 Direct Bilirubin 0.1 AST 25 24 ALT 27 23 Alkaline Phosphatase 115 121 H Ammonia 56 H Total Protein 7.8 8.7 H Albumin 3.6 3.9 Valproic Acid 19.6 L DS: Summary Hospital Course Hospital Course: 54 yo WF who presented from [facility] where she is known- co visual and auditory hallucinations when awake pacing, otherwise sedated co anxiety depression and suicidal thinking at [facility] ER- Here on unit she is behaving irratically with diarrhea and not attempting to manage her ADLs- spilled apple juice and crackers on floor next to her bed- later brownie sunday on floor that she accuses others of doing- Was so sedated when she was awoken for interview with me she sat up and fell asleep sitting up almost immediately- Had her seen by Claritza Juarez who agreed with holding all sedating medications- like gabapentin , lorazepam (not alcohol primary problem) and hold percocet- reports constant VH of shadows and spirits that do not go away. on intake but pt has not participated fully in nursing intake or with this provider's interview. Nursing reports this diarrhea has been [facility] to [facility] in past behavior. 54 patient agitated most of day around issues of medications- when came in was overly sedated to point that I could not do interview- and patient couldn't be r oused- So meds ativan, percocet and gabapentin where held yesterday- and today methadone was split dose- Angry about us giving lower dose saying that's illegal and your going to kill me Gave test dose of 200mg gabapentin this am and pt was still awake until 2nd dose methadone at 2pm then fell asleep - again- We have been offering olanzapine prns- She told me she was [place] in a snow [place] and wishes she had not been found and - she was giving up anyway- Wonder if she might benefit from sec 35? Claritza Juarez, customs compliance specialist , has been following patient closely with this provider over last day. Active on unit. 12b up on 09/17/24. Pt reports feeling frustrated because my meds were changed . focused on medications. Pt stated, I don't want to kill myself. I want my meds back to where they were . Discussed notes reported pt was sedated over the weekend; which pt denies and states her eyes are closed because I'm channeling spirits .per nursing, slept 8 hours last night. denies SI/HI/VH/AH. Continue current medication regimen. Active on unit, social with peers. Pt continues focused on methadone dose. She reports feeling okay today; observed laughing and joking with peers and staff. Pt states she is focused on staying clean and not using . Pt report she plans on presenting to [facility] in [place], [place] for substance abuse treatment. denies SI/HI/VH/AH. Per nursing, slept 8 hours last night. Pt to be discharged tomorrow;social work has arraigned a ride with [place] [facility] [place]. Status at Discharge Cognitive/behavioral status at discharge: Patient has insight and demonstrates good judgment in terms of wanting to pursue treatment. Patient has a safety plan that includes presenting to the closest ER or calling 911 if feeling unsafe. Functional status at discharge: independent ambulation Overall status at discharge: patient is back to baseline Time Spent with Patient Time attestation: Total time managing care of this patient today _20___ minutes. Time spent: Less than 30 minutes Discharge Plan Discharge Anticipated Discharge Date/Time: 09/17/24 08:45 Patient Disposition: Home, Self-Care Discharge Diagnosis: Mood d/o, opioid use d/o, cocaine use d/o Referrals: [facility] [Other] - 1 Week (Follow up with clinic when discharged. Bring last dose letter with you. ) [facility] [Provider Group] - 1 Week (Walk in hours m-f 830am to 4 pm) Discharge Medications: New methadone [Methadose] 10 mg/mL Concentrate 125 mg PO DAILY Qty: 0 0RF Rx Instructions: Partial Fill upon patient request. Continued aspirin 81 mg tablet,delayed release (DR/EC) 81 mg PO DAILY oxycodone 10 mg tablet 10 mg PO Q6H PRN (Reason: pain) clonidine HCl 0.1 mg tablet 0.1 mg 3XD Patient Comments: Patient does confirm she is on this but is on her medical record as of 08/26/24 levetiracetam 500 mg tablet 500 mg PO USEASDIRECTD Patient Comments: Patient does confirm she is on this but is on her medical record as of 08/26/24 valacyclovir 500 mg tablet 500 mg PO USEASDIRECTD Patient Comments: Patient does confirm she is on this but is on her medical record as of 08/26/24 pantoprazole 40 mg tablet,delayed release (DR/EC) 40 mg PO DAILY Patient Comments: Patient does confirm she is on this but is on her medical record as of 08/26/24 albuterol sulfate [Ventolin HFA] 90 mcg/actuation HFA aerosol inhaler 90 mcg INHALATION QID PRN (Reason: Shortness Of Breath Or Wheezing) Patient Comments: Patient does not confirm she uses this but is apart of medical record as of 08/26/24 fluticasone propionate 110 mcg/actuation HFA aerosol inhaler 110 mcg INHALATION BID Patient Comments: Patient does confirm she is on this but is on her medical record as of 08/26/24 venlafaxine 75 mg capsule,extended release 24hr 75 mg PO DAILY 30 Days Qty: 30 0RF Patient Comments: Patient does confirm she is on this but is on her medical record as of 08/26/24 trazodone 50 mg tablet 50 mg PO BEDTIME PRN (Reason: insomnia) 30 Days Qty: 30 0RF olanzapine 5 mg tablet 5 mg PO BEDTIME 30 Days Qty: 30 0RF divalproex 500 mg tablet extended release 24 hr 500 mg PO BEDTIME 30 Days Qty: 30 0RF Discontinued methadone 10 mg/mL Concentrate 170 mg PO DAILY Discharge Orders: Discharge Order (Routine); Ordered 09/17/24 Ordered By: Juliana Grant Diet: Regular diet Activity on Discharge: As tolerated Stand Alone Forms: Patient Portal Discharge page, Community Support Print Language: Frisian Care Plan Goals: Maintain mood and safe behaviors Take medications as prescribed Continue to pursue sobriety Practice coping skills Continue with outpatient providers and reach out to them as needed Health Concerns: Mood stability and behaviors Sobriety Plan of Treatment: Follow up with your PCP, psychiatric provider and other outpatient providers regarding above concerns Take medications as prescribed Assessment: Patient has insight and demonstrates good judgment in terms of wanting to pursue treatment. Patient has a safety plan that includes presenting to the closest ER or calling 911 if feeling unsafe. Discharge Date/Time: 09/17/24 08:55
== END 2024-09-17 08:55 | disposition home or self-care (01) | DRG 753 ==
PROVIDERS: Psychiatry & Neurology Psychiatry; Admitting Provider Social Worker; Responsible Provider Registered Nurse; Visit Provider Psychiatry & Neurology Psychiatry
DX: F39 Unspecified mood [affective] disorder (principal); R45.851 Suicidal ideations; J45.20 Mild intermittent asthma, uncomplicated; F14.10 Cocaine abuse, uncomplicated; F10.90 Alcohol use, unspecified, uncomplicated; B19.20 Unspecified viral hepatitis C without hepatic coma; F11.20 Opioid dependence, uncomplicated; Z79.51 Long term (current) use of inhaled steroids; Z79.82 Long term (current) use of aspirin; Z79.899 Other long term (current) drug therapy
CPT/HCPCS: 36415; 80053; 80076; 80164; 82140; S9485

== ENCOUNTER → 2024-09-12 17:00 | Outpatient (BNV) | payer OTHER, SELFPAY | PROVIDERS: Admitting Provider Social Worker; Responsible Provider Registered Nurse; Visit Provider Registered Nurse | DX: F39 Unspecified mood [affective] disorder (principal); F14.10 Cocaine abuse, uncomplicated; F11.20 Opioid dependence, uncomplicated | CPT/HCPCS: 99231; 99238 ==

== ENCOUNTER → 2024-09-12 17:00 | Outpatient (BNV) | payer MEDICAID, SELFPAY | PROVIDERS: Admitting Provider Social Worker; Visit Provider Physician Assistant | DX: Z00.8 Encounter for other general examination (principal) | CPT/HCPCS: 99222 ==

== ENCOUNTER → 2024-09-12 17:00 | Outpatient (BNV) | payer MEDICAID, SELFPAY | PROVIDERS: Admitting Provider Social Worker; Visit Provider Nurse Practitioner Psychiatric/Mental Health | DX: F11.20 Opioid dependence, uncomplicated (principal) | CPT/HCPCS: 99222; 99231; 99499 ==

== ENCOUNTER 2025-05-14 15:43 | Inpatient (IN) | payer OTHER, SELFPAY ==
[2025-05-14 15:54] VITALS: BP 133/89; PULSE 65; TEMP 37; O2SAT 98
[2025-05-14 15:55] VITALS: BMI 34.2
--- NOTE | 2025-05-14 17:12 | HE.PHANOTE ---
re: methadone Jade at [facility] confirmed methadone dose of 140 mg given 05/12. Madhavi at [facility] confirmed 140 mg given 05/14 @0800.
--- NOTE | 2025-05-14 19:07 | PC.ADMIT ---
Bonita arrived to at approximately 15:50 via ambulance stretcher, coming from [facility]. She?is a 55yr old female admitted, on a CV, s/p attempt to hang herself with a bedsheet. The sheet gave way & she fell to the ground. Bonita has documented history of Bipolar, Polysubstance abuse, IV drug abuse, mild cognitive disorder, stroke, HTN & diabetes (no diabetes meds noted). UTOX was positive for methadone, fentanyl & cocaine. She endorses daily use of cocaine, heroin and multiple pints alcohol. CIWA protocol has been ordered. Bonita is A&Ox4, cooperative with clothing changeover, but tired & retreated to her bed after answering a few questions. Her skin check is unremarkable. She endorses high anxiety & depression, denies current SI/HI/AVH at time of admission to . FELICE?s signed for providers and her brother. Bonita lives with her brother. She was oriented to the unit & placed on 15min safety checks. Bonita contracts for safety on the unit at this time.
--- NOTE | 2025-05-14 21:40 | PM.EVENT ---
Event Note Date of Service: 05/14/25 Event Note: Patient is a 52 with a history significant for history hepatitis-C bipolar disorder polysubstance abuse disorder stroke hypertension and type 2 diabetes (no medications) transferred center due to an outside the patient maneuvers the medical [facility] after trying to hang herself with her bed sheets and falling to the. Head CT and C-spine CT were both negative. Due to SI the patient was transferred to adult Psychiatry here. The patient's U tox was positive for methadone, fentanyl and cocaine. She admits to multiple pt of alcohol daily. Hospitalist consult was placed for medical clearance for the psychiatric floor however the patient declines. I discussed the importance of the medical consult and the patient reports that she does not have any current medical concerns and does not wish to be seen at this time. Below are my recommendations based off of chart review: Bipolar/SI/mood disorder - plan per psych Polysubstance use/alcohol abuse - addiction med consult - monitor CIWA - PRN Ativan for alcohol withdrawal - methadone HTN - HCTZ History CVA - aspirin and statin Moderate persistent asthma - fluticasone, albuterol Thank you for allowing me to participate in the pt's care. please re-consult if medical concerns arise. Time Spent With Patient Time: Total time managing care of this patient today ____ minutes.
[2025-05-14 22:39] VITALS: BP 154/94; PULSE 72; RESP 18; TEMP 36.4; O2SAT 98
[2025-05-15] MEDS: methADONE HCl 20 MG/2 ML ORAL.CONC 140 MG PO (08:04)
--- NOTE | 2025-05-15 08:13 | HO.PM.IMCN ---
History of Present Illness Data of Consult Service Date: 05/15/25 Primary Care Provider: None Physician HPI Reason for consult: Medical consult 55-year-old female with past medical history of polysubstance use disorder on methadone, bipolar disorder, cocaine abuse, IV drug abuse, mild cognitive disorder, neurocognitive disorder, hepatitis-C, history of stroke history of suicide attempts, diabetes, hypertension who presented to [facility] with suicidal ideations and attempt. She attempted to hang herself with a sheet. A CT was considered due to the hanging attempt to but patient has a anaphylactic reaction to contrast and it was felt that it was not indicated at this time, no ligature angulo and no evidence of any trauma to the neck. CT cervical spine and head were negative. CMP WNL. CBC within normal limits no evidence of leukocytosis or anemia. Tox screen positive for cocaine and fentanyl. On exam she denies any shortness of breath or chest pain. She is guarded, wants to take a shower. Denies any medical concerns. Review of Systems Review of Systems: Denies any shortness of breath, chest pain, palpitations, dizziness, lightheadedness, headaches, dysuria, abdominal pain or discomfort, nausea, vomiting or diarrhea. [facility] Medical History (Updated 05/15/25 @ 14:08 by Samara Brennan DNP) Medical clearance for psychiatric admission Neurocognitive disorder Hepatitis C History of CVA (cerebrovascular accident) Cocaine abuse Opioid use disorder, severe, dependence Mood disorder Mild intermittent asthma Social History Household Members: Family Household Members Other:: Adult brother Housing: Unknown / Unable to assess Do you presently have visiting nurse or other home services: No Patient Tobacco Use Status: Current everyday Tobacco user Tobacco use type: Cigarette Cigarette Packs Per Day: 2 Cigarettes Per Day: 40.0 Smoked in Last 30 Days: Yes Patient Interested in Nicotine Replacement: Yes Patient Given Instructions on How to Stop Smoking: No Second Hand Smoke Exposure: No Substance Use Type: Crack/Cocaine and Marijuana Currently Displaying Signs/Symptoms of Drug Intoxication Withdrawal: No Have you been hit, kicked, punched, or otherwise hurt by someone within the past year? If so, by whom?: No Do you feel safe in your current relationship?: No Current Relationship Is there a partner from a previous relationship who is making you feel unsafe now?: No Are you made to feel afraid or neglected: No Advance Directives: No Advance Directives Information Provided: Yes Do you have thoughts of harming others: None Do you have a plan to hurt others: No Plan Recently lost weight without trying: No Eating poorly because of decreased appetite: No Nutrition Risks: No Nutritional Risk Patient : No : No Poor oral hygiene: No service: No Sexual orientation: Straight/Heterosexual Meds Allergies Allergy/AdvReac Type Severity Reaction Status Date / Time Iodinated Contrast Media Allergy Severe Anaphylaxis Verified 05/14/25 19:45 (Contrast Dye) onion Allergy Severe Anaphylaxis Verified 05/14/25 19:45 latex Allergy Unknown Verified 05/14/25 19:45 Penicillins Allergy Unknown Verified 09/12/24 17:21 shellfish derived (shellfish) Allergy Unknown Verified 05/14/25 19:45 Active Medications: Current Medications Acetaminophen (Acetaminophen 325 Mg Tablet) 650 mg PO Q6H PRN PRN Reason: Headache/Pain, Scale 1-10 Al Hydroxide/Mg Hydroxide (Magnesium Hydrox/Alum Hydrox 30 Ml Oral.Susp) 30 ml PO Q6H PRN PRN Reason: Heartburn/Nausea Atorvastatin Calcium (Atorvastatin Calcium 40 Mg Tablet) 40 mg PO DAILY [facility] Divalproex Sodium (Divalproex Sodium Er 500 Mg Tab.Er.24h) 500 mg PO BEDTIME [facility] Last Admin: 05/14/25 22:28 Dose: 500 mg Gabapentin (Gabapentin 300 Mg Capsule) 300 mg PO TID [facility] Last Admin: 05/14/25 22:28 Dose: 300 mg Hydrochlorothiazide (Hydrochlorothiazide 25 Mg Tablet) 25 mg PO DAILY [facility]; Protocol Hydroxyzine HCl (Hydroxyzine Hcl 25 Mg Tablet) 25 mg PO Q6H PRN PRN Reason: mild anxiety Lorazepam (Lorazepam 1 Mg Tablet) 1 mg PO Q4H PRN PRN Reason: ciwa 8-11 Lorazepam (Lorazepam 1 Mg Tablet) 2 mg PO Q4H PRN PRN Reason: ciwa 12-17 Lorazepam (Lorazepam 1 Mg Tablet) 3 mg PO Q4H PRN PRN Reason: ciwa >17 call Magnesium Hydroxide (Milk Of Magnesia 30 Ml Oral.Susp) 30 ml PO DAILY PRN PRN Reason: Constipation Methadone HCl (Methadone Hcl 20 Mg/2 Ml Oral.Conc) 140 mg PO DAILY@0800 [facility] Last Admin: 05/15/25 08:04 Dose: 140 mg Nicotine Polacrilex (Nicotine Polacrilex 2 Mg Gum) 4 mg BUCCAL Q2H PRN PRN Reason: Nicotine Cravings Olanzapine (Olanzapine 5 Mg Tablet) 5 mg PO BEDTIME [facility] Last Admin: 05/14/25 22:28 Dose: 5 mg Omeprazole (Omeprazole 20 Mg Capsule.Dr) 20 mg PO DAILY@0630 [facility] Last Admin: 05/15/25 06:46 Dose: 20 mg Thiamine HCl (Thiamine Hcl 100 Mg Tablet) 100 mg PO DAILY [facility] Last Admin: 05/14/25 19:56 Dose: Not Given Trazodone HCl (Trazodone Hcl 50 Mg Tablet) 50 mg PO BEDTIME MRX1 PRN PRN Reason: Insomnia Last Admin: 05/14/25 23:25 Dose: 50 mg Venlafaxine HCl (Venlafaxine Hcl Er 75 Mg Cap.Er.24h) 75 mg PO DAILY [facility] Home Medications ?Medication ?Instructions ?Recorded ?Confirmed ?Last Taken ?Type albuterol sulfate 90 mcg/actuation 90 mcg inhalation QID PRN 09/12/24 05/14/25 05/13/25 16:00 History aerosol inhaler (Ventolin HFA) Shortness Of Breath Or Wheezing aspirin 81 mg tablet,delayed 81 mg PO DAILY 09/12/24 05/14/25 Unknown History release clonidine HCl 0.1 mg tablet 0.1 mg 3XD 09/12/24 05/14/25 05/14/25 08:00 History fluticasone propionate 110 110 mcg inhalation BID 09/12/24 05/14/25 05/14/25 08:00 History mcg/actuation HFA aerosol inhaler pantoprazole 40 mg tablet,delayed 40 mg PO DAILY 09/12/24 05/14/25 Unknown History release valacyclovir 500 mg tablet 500 mg PO USEASDIRECTD 09/12/24 05/14/25 Unknown History atorvastatin 40 mg tablet 40 mg PO DAILY 05/14/25 05/14/25 05/14/25 09:00 History gabapentin 300 mg capsule 300 mg PO TID 05/14/25 05/14/25 05/14/25 08:00 History hydrochlorothiazide 25 mg tablet 25 mg PO DAILY 05/14/25 05/14/25 05/14/25 08:00 History methadone 10 mg/mL oral 140 mg PO DAILY 05/14/25 05/14/25 05/14/25 08:00 History concentrate (Methadose) 140 mg Physical Exam Vital Signs and Narrative: Vital Signs: Last Vital Signs Temp 97.5 F 05/14/25 22:39 Pulse 72 05/14/25 22:39 Resp 18 05/14/25 22:39 BP 154/94 H 05/14/25 22:39 Pulse Ox 98 05/14/25 22:39 O2 Del Method Room Air 05/14/25 22:39 BMI result Body Mass Index 34.2 CONST: Alert and oriented, in NAD. Thin. HEENT: Normocephalic, atraumatic, MMM, Eyes clear, Neck supple RESP: Lungs clear, RRR even and regular HEART:,RRR, S1, S2. No edema GI:Abdomen Soft NT, ND. + BS times four :Deferred SKIN: Warm dry and intact, no visible lesions or rashes NEURO:CN II-XII Intact bilaterally, Sensation intact. Speech clear PSYCH: Flat affect, guarded Assessment and Plan (1) HTN (hypertension): Status: Acute Plan 55-year-old female with past medical history listed below presented to [facility] with suicidal ideations and attempt to take her life. She attempted to hang herself with a sheet. Bipolar/SI/mood disorder/mild cognitive disorder Plan per psychiatric team Polysubstance use on methadone/alcohol abuse Addiction med consult CIWA scale Continue methadone Hypertension/hyperlipidemia Continue Lipitor and hydrochlorothiazide History CVA Continue aspirin and statin Moderate persistent asthma Continue fluticasone, albuterol Thank you for allowing me to participate in the care of this patient. Will follow with you, please notify medical provider with any changes in condition or concerns.
[2025-05-15] MEDS: Venlafaxine HCl ER 75 MG CAP.ER.24H PO (09:02)
--- NOTE | 2025-05-15 21:00 | HO.PSYADMNOT ---
HPI Date of Service: 05/15/25 Chief Complaint: depressive d/o, opioid use d/o Sources of Information: patient interviewed, chart reviewed and crisis/core team assessment reviewed HPI Narrative: pt seen on 05/15/25 at 4:00pm Patient is a 55-year-old female with history of depression, PTSD, alcohol abuse, possibly schizoaffective disorder, CVA, hypertension who presents for SI with recent attempt to hang herself from a tree. Patient reports that she was doing well for years on her medications; she says she stopped them week ago but does not know why other than they make her feel other than herself... Patient became depressed, suicidal tried to end her life. She is not sure why it took her a few days to present to the ED. Patient endorses auditory hallucinations. She says she drinks about a pt of alcohol a day and is experiencing withdrawal with a history of withdrawal seizures. To this property underwriter she denies other substance abuse however endorsed a nursing that she uses cocaine and heroin and her U tox was positive for both. Patient would like to get back on her medications Past Psychiatric History: very little information though hospitalized at [facility] 2 wks ago where she got broken clavicle- Medical Evaluation Reviewed: Yes [facility] Medical History (Updated 05/15/25 @ 23:12 by Mati Sierra MD) Schizoaffective disorder PTSD (post-traumatic stress disorder) Medical clearance for psychiatric admission Neurocognitive disorder Hepatitis C History of CVA (cerebrovascular accident) Cocaine abuse Opioid use disorder, severe, dependence Mild intermittent asthma Family History: unobtainable Social History: unknown Substance History: Alcohol 1 pt daily; cocaine/opiate IV Trauma History: History of trauma Diagnostics Vital Signs (24Hr): Vital Signs - 24 hr 05/14/25 22:39 Temperature 97.5 F Pulse Rate 72 Respiratory Rate 18 Blood Pressure 154/94 H Pulse Oximetry 98 Oxygen Delivery Method Room Air BMI result Body Mass Index 34.2 Meds/Allergies Meds Home Medications ?Medication ?Instructions ?Recorded ?Confirmed ?Type albuterol sulfate 90 mcg/actuation 90 mcg inhalation QID PRN 09/12/24 05/14/25 History aerosol inhaler (Ventolin HFA) Shortness Of Breath Or Wheezing aspirin 81 mg tablet,delayed 81 mg PO DAILY 09/12/24 05/14/25 History release clonidine HCl 0.1 mg tablet 0.1 mg 3XD 09/12/24 05/14/25 History fluticasone propionate 110 110 mcg inhalation BID 09/12/24 05/14/25 History mcg/actuation HFA aerosol inhaler pantoprazole 40 mg tablet,delayed 40 mg PO DAILY 09/12/24 05/14/25 History release valacyclovir 500 mg tablet 500 mg PO USEASDIRECTD 09/12/24 05/14/25 History atorvastatin 40 mg tablet 40 mg PO DAILY 05/14/25 05/14/25 History gabapentin 300 mg capsule 300 mg PO TID 05/14/25 05/14/25 History hydrochlorothiazide 25 mg tablet 25 mg PO DAILY 05/14/25 05/14/25 History methadone 10 mg/mL oral 140 mg PO DAILY 05/14/25 05/14/25 History concentrate (Methadose) Allergies Allergies Allergy/AdvReac Type Severity Reaction Status Date / Time Iodinated Contrast Media Allergy Severe Anaphylaxis Verified 05/14/25 19:45 (Contrast Dye) onion Allergy Severe Anaphylaxis Verified 05/14/25 19:45 latex Allergy Unknown Verified 05/14/25 19:45 Penicillins Allergy Unknown Verified 09/12/24 17:21 shellfish derived (shellfish) Allergy Unknown Verified 05/14/25 19:45 Mental Status Exam Mental Status Exam Narrative: Pt is alert and oriented; behavior is quiet, isolative; cooperative on approach: patient is not in distress; dressed in hospital attire, disheveled; mood is described as not good and affect congruent, downcast, distant; eye contact appropriate; Speech is slowed; psychomotor retardation present; thought process is goal directed, concrete; Thought content is vague, psychosocial stressors, treatment; no overt expression of delusional content; currently denies any SI/HI. Positive for AH; patient does appear internally preoccupied. Patients insight and judgment impaired. Assessment & Plan Assessment & Plan (1) Schizoaffective disorder: Status: Acute Code(s): F25.9 - Schizoaffective disorder, unspecified (2) PTSD (post-traumatic stress disorder): Status: Acute Code(s): F43.10 - Post-traumatic stress disorder, unspecified (3) Opioid use disorder, severe, dependence: Status: Acute Code(s): F11.20 - Opioid dependence, uncomplicated (4) Cocaine abuse: Status: Acute Code(s): F14.10 - Cocaine abuse, uncomplicated (5) HTN (hypertension): Status: Acute Code(s): I10 - Essential (primary) hypertension (6) History of CVA (cerebrovascular accident): Status: Acute Code(s): Z86.73 - Personal history of transient ischemic attack (TIA), and cerebral infarction without residual deficits Plan HPI: Patient is a 55-year-old female with history of depression, PTSD, alcohol abuse, possibly schizoaffective disorder, CVA, hypertension who presents for SI with recent attempt to hang herself from a tree. Patient reports that she was doing well for years on her medications; she says she stopped them week ago but does not know why other than they make her feel other than herself... Patient became depressed, suicidal tried to end her life. She is not sure why it took her a few days to present to the ED. Patient endorses auditory hallucinations. She says she drinks about a pt of alcohol a day and is experiencing withdrawal with a history of withdrawal seizures. To this property underwriter she denies other substance abuse however endorsed a nursing that she uses cocaine and heroin and her U tox was positive for both. Patient would like to get back on her medications Formulation/clinical reasoning: Patient is a limited historian; she lists medications that she was on which is different from her med rec of recent meds (medications she listed included Prozac, Wellbutrin, clonidine, trazodone and risperidone). Will treat for alcohol withdrawal; will continue with recent medication prescriptions. Not sure if patient has neurocognitive disorder. Patient reports AH which is independent of mood so will diagnose with schizoaffective disorder Plan: CV q15 CIWA with p.r.n. Ativan Depakote ER 500 mg q.h.s. Gabapentin 300 mg t.i.d. Hydrochlorothiazide Zyprexa 5 mg q.h.s. Venlafaxine 75 mg daily Aspirin 81 mg daily Atorvastatin 10 mg daily Methadone 140 mg daily Patient educated on: diagnosis, medication risk/benefits, substance abuse, therapeutic strategies and medical condition Informed Consent: understands, does not understand and further education needed Reason for continued inpatient stay Substantial Risk for: rapid decompensation Statement Statement: I have reviewed the history and physical and performed a pertinent examination on my patient. No changes have occurred unless specified. If the History and Physical was not performed prior to admission, the Hospitalist's service will be consulted for completing the admission physical. Time Spent With Patient Time: Total time managing care of this patient today ____ minutes.
[2025-05-16 07:57] VITALS: BP 167/88; PULSE 85; TEMP 2.7; TEMP 36.8; O2SAT 98
[2025-05-16] MEDS: methADONE HCl 20 MG/2 ML ORAL.CONC 140 MG PO (08:09)
[2025-05-16] MEDS: Venlafaxine HCl ER 75 MG CAP.ER.24H PO (08:12)
[2025-05-16 11:15] LABS: Cholesterol 171 mg/dL (<200); HDL Cholesterol 32 mg/dL (>40); Triglycerides 173 mg/dL (<150)
--- NOTE | 2025-05-16 11:21 | P.PNPSI_ITS ---
Subjective Subjective Date of Service: 05/16/25 Reason For Visit: depressive d/o, opioid use d/o Interim History: Met with patient; discussed with team Patient remains sleepy and mostly keeping to herself; not scoring on CIWA so discontinued. Patient continues to have AH and remains internally preoccupied also reporting depression and anxiety. Exhibition Designer discussed medications with her and she feels that Risperdal is more helpful than Zyprexa which was started on admission and asks for it to be switched. Mental Status Exam Mental Status Exam Narrative: Pt is alert and oriented; behavior is quiet, isolative; cooperative on approach: patient is not in distress; dressed in hospital attire, disheveled; mood is described as depressed, anxious and affect congruent, downcast, blunted; eye contact appropriate; Speech is slowed; psychomotor retardation present; thought process is goal directed, concrete; Thought content is vague, psychosocial stressors, treatment; no overt expression of delusional content; currently denies any SI/HI. Positive for AH; patient does appear internally preoccupied. Patients insight and judgment impaired. Diagnostics Vital Signs (24Hr): Vital Signs - 24 hr 05/16/25 07:57 Temperature 36.8 F L Pulse Rate 85 Blood Pressure 167/88 H Pulse Oximetry 98 Oxygen Delivery Method Room Air BMI result Body Mass Index 34.2 Labs Labs: Laboratory Results - last 48 hr 05/16/25 10:41 Triglycerides 173 H Cholesterol 171 LDL Cholesterol, Calc 105 H HDL Cholesterol 32 L Medications Medications Current Medications Acetaminophen (Acetaminophen 325 Mg Tablet) 650 mg PO Q6H PRN PRN Reason: Headache/Pain, Scale 1-10 Al Hydroxide/Mg Hydroxide (Magnesium Hydrox/Alum Hydrox 30 Ml Oral.Susp) 30 ml PO Q6H PRN PRN Reason: Heartburn/Nausea Aspirin (Aspirin 81 Mg Tab.Chew) 81 mg PO DAILY [facility] Last Admin: 05/16/25 08:58 Dose: 81 mg Atorvastatin Calcium (Atorvastatin Calcium 40 Mg Tablet) 40 mg PO DAILY [facility] Last Admin: 05/16/25 08:12 Dose: 40 mg Divalproex Sodium (Divalproex Sodium Er 500 Mg Tab.Er.24h) 500 mg PO BEDTIME [facility] Last Admin: 05/15/25 21:25 Dose: 500 mg Gabapentin (Gabapentin 300 Mg Capsule) 300 mg PO TID [facility] Last Admin: 05/16/25 08:12 Dose: 300 mg Hydrochlorothiazide (Hydrochlorothiazide 25 Mg Tablet) 25 mg PO DAILY [facility]; Protocol Last Admin: 05/16/25 08:12 Dose: 25 mg Hydroxyzine HCl (Hydroxyzine Hcl 25 Mg Tablet) 25 mg PO Q6H PRN PRN Reason: mild anxiety Lorazepam (Lorazepam 1 Mg Tablet) 1 mg PO Q4H PRN PRN Reason: ciwa 8-11 Lorazepam (Lorazepam 1 Mg Tablet) 2 mg PO Q4H PRN PRN Reason: ciwa 12-17 Lorazepam (Lorazepam 1 Mg Tablet) 3 mg PO Q4H PRN PRN Reason: ciwa >17 call Magnesium Hydroxide (Milk Of Magnesia 30 Ml Oral.Susp) 30 ml PO DAILY PRN PRN Reason: Constipation Methadone HCl (Methadone Hcl 20 Mg/2 Ml Oral.Conc) 140 mg PO DAILY@0800 [facility] Last Admin: 05/16/25 08:09 Dose: 140 mg Nicotine Polacrilex (Nicotine Polacrilex 2 Mg Gum) 4 mg BUCCAL Q2H PRN PRN Reason: Nicotine Cravings Olanzapine (Olanzapine 5 Mg Tablet) 5 mg PO BEDTIME [facility] Last Admin: 05/15/25 21:25 Dose: 5 mg Omeprazole (Omeprazole 20 Mg Capsule.Dr) 20 mg PO DAILY@0630 [facility] Last Admin: 05/16/25 06:22 Dose: 20 mg Thiamine HCl (Thiamine Hcl 100 Mg Tablet) 100 mg PO DAILY [facility] Last Admin: 05/16/25 08:11 Dose: 100 mg Trazodone HCl (Trazodone Hcl 50 Mg Tablet) 50 mg PO BEDTIME MRX1 PRN PRN Reason: Insomnia Last Admin: 05/14/25 23:25 Dose: 50 mg Venlafaxine HCl (Venlafaxine Hcl Er 75 Mg Cap.Er.24h) 75 mg PO DAILY [facility] Last Admin: 05/16/25 08:12 Dose: 75 mg Allergies Allergies Allergy/AdvReac Type Severity Reaction Status Date / Time Iodinated Contrast Media Allergy Severe Anaphylaxis Verified 05/14/25 19:45 (Contrast Dye) onion Allergy Severe Anaphylaxis Verified 05/14/25 19:45 latex Allergy Unknown Verified 05/14/25 19:45 Penicillins Allergy Unknown Verified 09/12/24 17:21 shellfish derived (shellfish) Allergy Unknown Verified 05/14/25 19:45 Assessment & Plan Assessment & Plan (1) Schizoaffective disorder: Status: Acute Code(s): F25.9 - Schizoaffective disorder, unspecified (2) PTSD (post-traumatic stress disorder): Status: Acute Code(s): F43.10 - Post-traumatic stress disorder, unspecified (3) Opioid use disorder, severe, dependence: Status: Acute Code(s): F11.20 - Opioid dependence, uncomplicated (4) Cocaine abuse: Status: Acute Code(s): F14.10 - Cocaine abuse, uncomplicated (5) HTN (hypertension): Status: Acute Code(s): I10 - Essential (primary) hypertension (6) History of CVA (cerebrovascular accident): Status: Acute Code(s): Z86.73 - Personal history of transient ischemic attack (TIA), and cerebral infarction without residual deficits Plan HPI: Patient is a 55-year-old female with history of depression, PTSD, alcohol abuse, possibly schizoaffective disorder, CVA, hypertension who presents for SI with recent attempt to hang herself from a tree. Patient reports that she was doing well for years on her medications; she says she stopped them week ago but does not know why other than they make her feel other than herself... Patient became depressed, suicidal tried to end her life. She is not sure why it took her a few days to present to the ED. Patient endorses auditory hallucinations. She says she drinks about a pt of alcohol a day and is experiencing withdrawal with a history of withdrawal seizures. To this global technical writer she denies other substance abuse however endorsed a nursing that she uses cocaine and heroin and her U tox was positive for both. Patient would like to get back on her medications Formulation/clinical reasoning: Patient is a limited historian; she lists medications that she was on which is different from her med rec of recent meds (medications she listed included Prozac, Wellbutrin, clonidine, trazodone and risperidone). Will treat for alcohol withdrawal; will continue with recent medication prescriptions. Not sure if patient has neurocognitive disorder. Patient reports AH which is independent of mood so will diagnose with schizoaffective disorder Hospital course: 05/16 Patient remains sleepy and mostly keeping to herself; not scoring on CIWA so discontinued. Patient continues to have AH and remains internally preoccupied also reporting depression and anxiety. Exhibition Designer discussed medications with her and she feels that Risperdal is more helpful than Zyprexa which was started on admission and asks for it to be switched. Plan: CV q15 CIWA with p.r.n. Ativan Depakote ER 500 mg q.h.s. Gabapentin 300 mg t.i.d. Hydrochlorothiazide Start Risperdal 2 mg q.h.s.; may titrate Discontinue Zyprexa 5 mg q.h.s. Venlafaxine 75 mg daily Aspirin 81 mg daily Atorvastatin 10 mg daily Methadone 140 mg daily Patient educated on: diagnosis, medication risk/benefits and substance abuse Informed Consent: understands and further education needed Reason for continued inpatient stay Substantial Risk for: rapid decompensation Time Spent With Patient Time: Total time managing care of this patient today ____ minutes.
[2025-05-16 11:25] LABS: Hemoglobin A1C 116.3171 umol/L; Total Hemoglobin (HGBA1C) 3415.0237 umol/L
[2025-05-16 11:29] LABS: Free T4 (Free Thyroxine) 1.09 ng/dL (0.71-1.85); Thyroid Stimulating Hormone 0.92 uIU/mL (0.32-4.0)
[2025-05-16 11:43] LABS: Folate 9.3 ng/mL (> or = 4.0); Vitamin B12 290 pg/mL (200-900)
[2025-05-17] MEDS: methADONE HCl 20 MG/2 ML ORAL.CONC 140 MG PO (07:48)
[2025-05-17 07:59] VITALS: BP 163/70; PULSE 70; RESP 16; TEMP 36.6; O2SAT 99
[2025-05-17 08:59] VITALS: BP 160/77
[2025-05-17] MEDS: Venlafaxine HCl ER 75 MG CAP.ER.24H PO (08:59)
--- NOTE | 2025-05-17 16:25 | HO.PSYCHPN ---
Subjective Subjective Date of Service: 05/17/25 Reason For Visit: depressive d/o, opioid use d/o Interim History: Met with patient; discussed with team Patient up and out of bed and dressed in new clothes this morning, wearing glasses. She says she is a little better. Difficult with which to engage. Says she continues to have AH and would like risperidone to be increased. Mental Status Exam Mental Status Exam Narrative: Pt is alert and oriented; behavior is up in the milieu and seems appropriate with peers and staff; difficult with which to engage but cooperative on approach: patient is not in distress; dressed in casual attire, improved grooming;; mood is described as a little better and affect congruent, downcast, less blunted; eye contact appropriate; Speech is still slowed; but no psychomotor retardation present; thought process is goal directed, concrete; Thought content is vague, psychosocial stressors, treatment; no overt expression of delusional content; currently denies any SI/HI. Positive for AH; patient does appear internally preoccupied. Patients insight and judgment impaired but improving. Diagnostics Vital Signs (24Hr): Vital Signs - 24 hr 05/17/25 07:59 05/17/25 08:59 Temperature 97.9 F Pulse Rate 70 Respiratory Rate 16 Blood Pressure 163/70 H 160/77 H Pulse Oximetry 99 Oxygen Delivery Method Room Air BMI result Body Mass Index 34.2 Labs Labs: Laboratory Results - last 48 hr 05/16/25 10:41 Estimat Average Glucose 105 Hemoglobin A1c % 5.3 Triglycerides 173 H Cholesterol 171 LDL Cholesterol, Calc 105 H HDL Cholesterol 32 L Vitamin B12 290 Folate 9.3 TSH 0.92 Free T4 1.09 Medications Medications Current Medications Acetaminophen (Acetaminophen 325 Mg Tablet) 650 mg PO Q6H PRN PRN Reason: Headache/Pain, Scale 1-10 Al Hydroxide/Mg Hydroxide (Magnesium Hydrox/Alum Hydrox 30 Ml Oral.Susp) 30 ml PO Q6H PRN PRN Reason: Heartburn/Nausea Aspirin (Aspirin 81 Mg Tab.Chew) 81 mg PO DAILY [facility] Last Admin: 05/17/25 08:59 Dose: 81 mg Atorvastatin Calcium (Atorvastatin Calcium 40 Mg Tablet) 40 mg PO DAILY [facility] Last Admin: 05/17/25 08:59 Dose: 40 mg Divalproex Sodium (Divalproex Sodium Er 500 Mg Tab.Er.24h) 500 mg PO BEDTIME [facility] Last Admin: 05/16/25 21:24 Dose: 500 mg Gabapentin (Gabapentin 300 Mg Capsule) 300 mg PO TID [facility] Last Admin: 05/17/25 15:19 Dose: 300 mg Hydrochlorothiazide (Hydrochlorothiazide 25 Mg Tablet) 25 mg PO DAILY [facility]; Protocol Last Admin: 05/17/25 08:59 Dose: 25 mg Hydroxyzine HCl (Hydroxyzine Hcl 25 Mg Tablet) 25 mg PO Q6H PRN PRN Reason: mild anxiety Last Admin: 05/17/25 15:19 Dose: 25 mg Magnesium Hydroxide (Milk Of Magnesia 30 Ml Oral.Susp) 30 ml PO DAILY PRN PRN Reason: Constipation Methadone HCl (Methadone Hcl 20 Mg/2 Ml Oral.Conc) 140 mg PO DAILY@0800 [facility] Last Admin: 05/17/25 07:48 Dose: 140 mg Nicotine Polacrilex (Nicotine Polacrilex 2 Mg Gum) 4 mg BUCCAL Q2H PRN PRN Reason: Nicotine Cravings Omeprazole (Omeprazole 20 Mg Capsule.Dr) 20 mg PO DAILY@0630 [facility] Last Admin: 05/17/25 07:04 Dose: 20 mg Risperidone (Risperidone 2 Mg Tablet) 2 mg PO BEDTIME [facility] Last Admin: 05/16/25 21:24 Dose: 2 mg Thiamine HCl (Thiamine Hcl 100 Mg Tablet) 100 mg PO DAILY [facility] Last Admin: 05/17/25 08:59 Dose: 100 mg Trazodone HCl (Trazodone Hcl 50 Mg Tablet) 50 mg PO BEDTIME MRX1 PRN PRN Reason: Insomnia Last Admin: 05/17/25 00:50 Dose: 50 mg Venlafaxine HCl (Venlafaxine Hcl Er 75 Mg Cap.Er.24h) 75 mg PO DAILY [facility] Last Admin: 05/17/25 08:59 Dose: 75 mg Allergies Allergies Allergy/AdvReac Type Severity Reaction Status Date / Time Iodinated Contrast Media Allergy Severe Anaphylaxis Verified 05/14/25 19:45 (Contrast Dye) onion Allergy Severe Anaphylaxis Verified 05/14/25 19:45 latex Allergy Unknown Verified 05/14/25 19:45 Penicillins Allergy Unknown Verified 09/12/24 17:21 shellfish derived (shellfish) Allergy Unknown Verified 05/14/25 19:45 Assessment & Plan Assessment & Plan (1) Schizoaffective disorder: Status: Acute Code(s): F25.9 - Schizoaffective disorder, unspecified (2) PTSD (post-traumatic stress disorder): Status: Acute Code(s): F43.10 - Post-traumatic stress disorder, unspecified (3) Opioid use disorder, severe, dependence: Status: Acute Code(s): F11.20 - Opioid dependence, uncomplicated (4) Cocaine abuse: Status: Acute Code(s): F14.10 - Cocaine abuse, uncomplicated (5) HTN (hypertension): Status: Acute Code(s): I10 - Essential (primary) hypertension (6) History of CVA (cerebrovascular accident): Status: Acute Code(s): Z86.73 - Personal history of transient ischemic attack (TIA), and cerebral infarction without residual deficits Plan HPI: Patient is a 55-year-old female with history of depression, PTSD, alcohol abuse, possibly schizoaffective disorder, CVA, hypertension who presents for SI with recent attempt to hang herself from a tree. Patient reports that she was doing well for years on her medications; she says she stopped them week ago but does not know why other than they make her feel other than herself... Patient became depressed, suicidal tried to end her life. She is not sure why it took her a few days to present to the ED. Patient endorses auditory hallucinations. She says she drinks about a pt of alcohol a day and is experiencing withdrawal with a history of withdrawal seizures. To this ad copy writer she denies other substance abuse however endorsed a nursing that she uses cocaine and heroin and her U tox was positive for both. Patient would like to get back on her medications Formulation/clinical reasoning: Patient is a limited historian; she lists medications that she was on which is different from her med rec of recent meds (medications she listed included Prozac, Wellbutrin, clonidine, trazodone and risperidone). Will treat for alcohol withdrawal; will continue with recent medication prescriptions. Not sure if patient has neurocognitive disorder. Patient reports AH which is independent of mood so will diagnose with schizoaffective disorder Hospital course: 05/16 Patient remains sleepy and mostly keeping to herself; not scoring on CIWA so discontinued. Patient continues to have AH and remains internally preoccupied also reporting depression and anxiety. Jowl Trimmer discussed medications with her and she feels that Risperdal is more helpful than Zyprexa which was started on admission and asks for it to be switched. 05/17 Patient up and out of bed and dressed in new clothes this morning, wearing glasses. She says she is a little better. Difficult with which to engage. Says she continues to have AH and would like risperidone to be increased. -no manic symptoms and more organized will increase Risperdal Plan: CV q15 CIWA with p.r.n. Ativan Depakote ER 500 mg q.h.s. Gabapentin 300 mg t.i.d. Hydrochlorothiazide INCREAS to Risperdal 4mg q.h.s.; may titrate Discontinue Zyprexa 5 mg q.h.s. Venlafaxine 75 mg daily Aspirin 81 mg daily Atorvastatin 10 mg daily Methadone 140 mg daily Patient educated on: diagnosis and medication risk/benefits Informed Consent: understands Reason for continued inpatient stay Substantial Risk for: rapid decompensation Time Spent With Patient Time: Total time managing care of this patient today ____ minutes.
[2025-05-18] MEDS: methADONE HCl 20 MG/2 ML ORAL.CONC 140 MG PO (07:52)
[2025-05-18 08:22] VITALS: BP 107/56; PULSE 64; RESP 17; TEMP 36.6; O2SAT 96
[2025-05-18 08:41] VITALS: BP 107/56
[2025-05-18] MEDS: Venlafaxine HCl ER 75 MG CAP.ER.24H PO (08:42)
--- NOTE | 2025-05-18 10:16 | HO.PSYCHPN ---
Subjective Subjective Date of Service: 05/18/25 Reason For Visit: depressive d/o, opioid use d/o Interim History: Met with patient; discussed with team Patient says AH remain; they are little less with her still quite bothersome. She asks for Ativan to help deal with them saying they are command in nature, telling her to harm herself and she explains this is what she heard regarding recent attempt to hang herself. Patient agrees to low-dose Ativan that will only be used during this admission and not for discharge. Mental Status Exam Mental Status Exam Narrative: Pt is alert and oriented; behavior is isolative but a little more out in the milieu; cooperative on approach: patient is not in distress; dressed in casual attire, disheveled and malodorous; mood is described as depressed, anxious and affect congruent, downcast, blunted; eye contact appropriate; Speech is normal volume, rate and prosody; some psychomotor retardation present; thought process is goal directed, concrete; Thought content is dealing with command AH; no overt expression of delusional content; currently denies any SI/HI. Positive for AH; patient does appear internally preoccupied. Patients insight and judgment impaired. Diagnostics Vital Signs (24Hr): Vital Signs - 24 hr 05/18/25 08:22 05/18/25 08:41 Temperature 97.9 F Pulse Rate 64 Respiratory Rate 17 Blood Pressure 107/56 L 107/56 L Pulse Oximetry 96 Oxygen Delivery Method Room Air BMI result Body Mass Index 34.2 Labs Labs: Laboratory Results - last 48 hr 05/16/25 10:41 Estimat Average Glucose 105 Hemoglobin A1c % 5.3 Triglycerides 173 H Cholesterol 171 LDL Cholesterol, Calc 105 H HDL Cholesterol 32 L Vitamin B12 290 Folate 9.3 TSH 0.92 Free T4 1.09 Medications Medications Current Medications Acetaminophen (Acetaminophen 325 Mg Tablet) 650 mg PO Q6H PRN PRN Reason: Headache/Pain, Scale 1-10 Last Admin: 05/17/25 20:35 Dose: 650 mg Al Hydroxide/Mg Hydroxide (Magnesium Hydrox/Alum Hydrox 30 Ml Oral.Susp) 30 ml PO Q6H PRN PRN Reason: Heartburn/Nausea Aspirin (Aspirin 81 Mg Tab.Chew) 81 mg PO DAILY [facility] Last Admin: 05/18/25 08:42 Dose: 81 mg Atorvastatin Calcium (Atorvastatin Calcium 40 Mg Tablet) 40 mg PO DAILY [facility] Last Admin: 05/18/25 08:42 Dose: 40 mg Divalproex Sodium (Divalproex Sodium Er 500 Mg Tab.Er.24h) 500 mg PO BEDTIME [facility] Last Admin: 05/17/25 20:36 Dose: 500 mg Gabapentin (Gabapentin 300 Mg Capsule) 300 mg PO TID [facility] Last Admin: 05/18/25 08:41 Dose: 300 mg Hydrochlorothiazide (Hydrochlorothiazide 25 Mg Tablet) 25 mg PO DAILY [facility]; Protocol Last Admin: 05/18/25 08:41 Dose: 25 mg Hydroxyzine HCl (Hydroxyzine Hcl 25 Mg Tablet) 25 mg PO Q6H PRN PRN Reason: mild anxiety Last Admin: 05/17/25 20:35 Dose: 25 mg Lorazepam (Lorazepam 0.5 Mg Tablet) 0.5 mg PO TID PRN PRN Reason: Psychosis/AH Magnesium Hydroxide (Milk Of Magnesia 30 Ml Oral.Susp) 30 ml PO DAILY PRN PRN Reason: Constipation Melatonin (Melatonin 3 Mg Tablet) 3 mg PO BEDTIME PRN PRN Reason: Insomnia Last Admin: 05/17/25 21:59 Dose: 3 mg Methadone HCl (Methadone Hcl 20 Mg/2 Ml Oral.Conc) 140 mg PO DAILY@0800 [facility] Last Admin: 05/18/25 07:52 Dose: 140 mg Nicotine Polacrilex (Nicotine Polacrilex 2 Mg Gum) 4 mg BUCCAL Q2H PRN PRN Reason: Nicotine Cravings Omeprazole (Omeprazole 20 Mg Capsule.Dr) 20 mg PO DAILY@0630 [facility] Last Admin: 05/18/25 06:15 Dose: 20 mg Risperidone (Risperidone 2 Mg Tablet) 4 mg PO BEDTIME [facility] Last Admin: 05/17/25 20:36 Dose: 4 mg Simethicone (Simethicone 80 Mg Tab.Chew) 80 mg PO QIDWMHS PRN PRN Reason: flatulance Thiamine HCl (Thiamine Hcl 100 Mg Tablet) 100 mg PO DAILY [facility] Last Admin: 05/18/25 08:42 Dose: 100 mg Trazodone HCl (Trazodone Hcl 50 Mg Tablet) 50 mg PO BEDTIME MRX1 PRN PRN Reason: Insomnia Last Admin: 05/17/25 00:50 Dose: 50 mg Venlafaxine HCl (Venlafaxine Hcl Er 75 Mg Cap.Er.24h) 75 mg PO DAILY [facility] Last Admin: 05/18/25 08:42 Dose: 75 mg Allergies Allergies Allergy/AdvReac Type Severity Reaction Status Date / Time Iodinated Contrast Media Allergy Severe Anaphylaxis Verified 05/14/25 19:45 (Contrast Dye) onion Allergy Severe Anaphylaxis Verified 05/14/25 19:45 latex Allergy Unknown Verified 05/14/25 19:45 Penicillins Allergy Unknown Verified 09/12/24 17:21 shellfish derived (shellfish) Allergy Unknown Verified 05/14/25 19:45 Assessment & Plan Assessment & Plan (1) Schizoaffective disorder: Status: Acute Code(s): F25.9 - Schizoaffective disorder, unspecified (2) PTSD (post-traumatic stress disorder): Status: Acute Code(s): F43.10 - Post-traumatic stress disorder, unspecified (3) Opioid use disorder, severe, dependence: Status: Acute Code(s): F11.20 - Opioid dependence, uncomplicated (4) Cocaine abuse: Status: Acute Code(s): F14.10 - Cocaine abuse, uncomplicated (5) HTN (hypertension): Status: Acute Code(s): I10 - Essential (primary) hypertension (6) History of CVA (cerebrovascular accident): Status: Acute Code(s): Z86.73 - Personal history of transient ischemic attack (TIA), and cerebral infarction without residual deficits Plan HPI: Patient is a 55-year-old female with history of depression, PTSD, alcohol abuse, possibly schizoaffective disorder, CVA, hypertension who presents for SI with recent attempt to hang herself from a tree. Patient reports that she was doing well for years on her medications; she says she stopped them week ago but does not know why other than they make her feel other than herself... Patient became depressed, suicidal tried to end her life. She is not sure why it took her a few days to present to the ED. Patient endorses auditory hallucinations. She says she drinks about a pt of alcohol a day and is experiencing withdrawal with a history of withdrawal seizures. To this commercial loan underwriter she denies other substance abuse however endorsed a nursing that she uses cocaine and heroin and her U tox was positive for both. Patient would like to get back on her medications Formulation/clinical reasoning: Patient is a limited historian; she lists medications that she was on which is different from her med rec of recent meds (medications she listed included Prozac, Wellbutrin, clonidine, trazodone and risperidone). Will treat for alcohol withdrawal; will continue with recent medication prescriptions. Not sure if patient has neurocognitive disorder. Patient reports AH which is independent of mood so will diagnose with schizoaffective disorder Hospital course: 05/16 Patient remains sleepy and mostly keeping to herself; not scoring on CIWA so discontinued. Patient continues to have AH and remains internally preoccupied also reporting depression and anxiety. Food Order Expediter discussed medications with her and she feels that Risperdal is more helpful than Zyprexa which was started on admission and asks for it to be switched. 05/17 Patient up and out of bed and dressed in new clothes this morning, wearing glasses. She says she is a little better. Difficult with which to engage. Says she continues to have AH and would like risperidone to be increased. -no manic symptoms and more organized will increase Risperdal 05/18 Patient says AH remain; they are little less with her still quite bothersome. She asks for Ativan to help deal with them saying they are command in nature, telling her to harm herself and she explains this is what she heard regarding recent attempt to hang herself. Patient agrees to low-dose Ativan that will only be used during this admission and not for discharge. Discussed UDS positive for cocaine and fentanyl; patient says she never uses fentanyl so cocaine must have been laced -will add Ativan 0.5 mg t.i.d. p.r.n. while she is on the unit and while Risperdal takes effect -seems that Risperdal has helped a little; will leave it at 4 mg for now to see if it has continued effect; otherwise will increase Plan: CV q15 INCREASed to Risperdal 4mg q.h.s.; may titrate Discontinue Zyprexa 5 mg q.h.s. *Time limited Ativan 0.5 mg t.i.d. p.r.n. Depakote ER 500 mg q.h.s. Gabapentin 300 mg t.i.d. Hydrochlorothiazide Venlafaxine 75 mg daily Aspirin 81 mg daily Atorvastatin 10 mg daily Methadone 140 mg daily Patient educated on: diagnosis, medication risk/benefits and substance abuse Informed Consent: understands and further education needed Reason for continued inpatient stay Substantial Risk for: rapid decompensation Time Spent With Patient Time: Total time managing care of this patient today ____ minutes.
[2025-05-18 20:09] VITALS: BP 133/80; PULSE 84; RESP 18; TEMP 37.5; O2SAT 97
[2025-05-19] MEDS: methADONE HCl 20 MG/2 ML ORAL.CONC 140 MG PO (07:52)
[2025-05-19 08:31] VITALS: BP 148/59; PULSE 63; RESP 16; TEMP 35.9; O2SAT 99
[2025-05-19] MEDS: Venlafaxine HCl ER 75 MG CAP.ER.24H PO (08:33)
--- NOTE | 2025-05-19 09:43 | P.PNPSI_ITS ---
Subjective Subjective Date of Service: 05/19/25 Reason For Visit: depressive d/o, opioid use d/o Interim History: Met with patient; discussed with team Patient appears overly sedated; she agrees and thinks it is likely due to the Ativan which she agrees to have discontinued. She said the voices are still bothering her and agrees to increased Risperdal. Patient shared that she is interested in going to a program; she does have a place to she can stay, at her brother's, but says that is not a very good situation Mental Status Exam Mental Status Exam Narrative: Pt is alert and oriented; behavior is isolative but a little more out in the milieu, drowsy; cooperative on approach: patient is not in distress; dressed in casual attire, disheveled but did shower; mood is described as depressed, anxious and affect congruent, downcast, blunted; eye contact appropriate; Speech is normal volume, rate and prosody; some psychomotor retardation present; thought process is goal directed, concrete; Thought content is dealing with command AH; no overt expression of delusional content; currently denies any SI/HI. Positive for AH; patient does appear internally preoccupied. Patients insight and judgment impaired. Diagnostics Vital Signs (24Hr): Vital Signs - 24 hr 05/18/25 20:09 05/19/25 08:31 Temperature 99.5 F 96.7 F L Pulse Rate 84 63 Respiratory Rate 18 16 Blood Pressure 133/80 148/59 H Pulse Oximetry 97 99 Oxygen Delivery Method Room Air Room Air BMI result Body Mass Index 34.2 Medications Medications Current Medications Acetaminophen (Acetaminophen 325 Mg Tablet) 650 mg PO Q6H PRN PRN Reason: Headache/Pain, Scale 1-10 Last Admin: 05/17/25 20:35 Dose: 650 mg Al Hydroxide/Mg Hydroxide (Magnesium Hydrox/Alum Hydrox 30 Ml Oral.Susp) 30 ml PO Q6H PRN PRN Reason: Heartburn/Nausea Aspirin (Aspirin 81 Mg Tab.Chew) 81 mg PO DAILY [facility] Last Admin: 05/19/25 08:33 Dose: 81 mg Atorvastatin Calcium (Atorvastatin Calcium 40 Mg Tablet) 40 mg PO DAILY [facility] Last Admin: 05/19/25 08:33 Dose: 40 mg Divalproex Sodium (Divalproex Sodium Er 500 Mg Tab.Er.24h) 500 mg PO BEDTIME [facility] Last Admin: 05/18/25 20:52 Dose: 500 mg Gabapentin (Gabapentin 300 Mg Capsule) 300 mg PO TID [facility] Last Admin: 05/19/25 08:33 Dose: 300 mg Hydrochlorothiazide (Hydrochlorothiazide 25 Mg Tablet) 25 mg PO DAILY [facility]; Protocol Last Admin: 05/19/25 08:33 Dose: 25 mg Hydroxyzine HCl (Hydroxyzine Hcl 25 Mg Tablet) 25 mg PO Q6H PRN PRN Reason: mild anxiety Last Admin: 05/18/25 20:53 Dose: 25 mg Loperamide HCl (Loperamide Hcl 2 Mg Capsule) 2 mg PO Q6H PRN PRN Reason: loose stool Lorazepam (Lorazepam 0.5 Mg Tablet) 0.5 mg PO TID PRN PRN Reason: Psychosis/AH Last Admin: 05/18/25 18:46 Dose: 0.5 mg Magnesium Hydroxide (Milk Of Magnesia 30 Ml Oral.Susp) 30 ml PO DAILY PRN PRN Reason: Constipation Melatonin (Melatonin 3 Mg Tablet) 3 mg PO BEDTIME PRN PRN Reason: Insomnia Last Admin: 05/18/25 20:53 Dose: 3 mg Methadone HCl (Methadone Hcl 20 Mg/2 Ml Oral.Conc) 140 mg PO DAILY@0800 [facility] Last Admin: 05/19/25 07:52 Dose: 140 mg Nicotine Polacrilex (Nicotine Polacrilex 2 Mg Gum) 4 mg BUCCAL Q2H PRN PRN Reason: Nicotine Cravings Last Admin: 05/18/25 11:35 Dose: 4 mg Omeprazole (Omeprazole 20 Mg Capsule.Dr) 20 mg PO DAILY@0630 [facility] Last Admin: 05/19/25 06:12 Dose: 20 mg Risperidone (Risperidone 2 Mg Tablet) 4 mg PO BEDTIME [facility] Last Admin: 05/18/25 20:52 Dose: 4 mg Simethicone (Simethicone 80 Mg Tab.Chew) 80 mg PO QIDWMHS PRN PRN Reason: flatulance Last Admin: 05/18/25 18:45 Dose: 80 mg Thiamine HCl (Thiamine Hcl 100 Mg Tablet) 100 mg PO DAILY [facility] Last Admin: 05/19/25 08:34 Dose: 100 mg Trazodone HCl (Trazodone Hcl 50 Mg Tablet) 50 mg PO BEDTIME MRX1 PRN PRN Reason: Insomnia Last Admin: 05/18/25 20:53 Dose: 50 mg Venlafaxine HCl (Venlafaxine Hcl Er 75 Mg Cap.Er.24h) 75 mg PO DAILY [facility] Last Admin: 05/19/25 08:33 Dose: 75 mg Allergies Allergies Allergy/AdvReac Type Severity Reaction Status Date / Time Iodinated Contrast Media Allergy Severe Anaphylaxis Verified 05/14/25 19:45 (Contrast Dye) onion Allergy Severe Anaphylaxis Verified 05/14/25 19:45 latex Allergy Unknown Verified 05/14/25 19:45 Penicillins Allergy Unknown Verified 09/12/24 17:21 shellfish derived (shellfish) Allergy Unknown Verified 05/14/25 19:45 Assessment & Plan Assessment & Plan (1) Schizoaffective disorder: Status: Acute Code(s): F25.9 - Schizoaffective disorder, unspecified (2) PTSD (post-traumatic stress disorder): Status: Acute Code(s): F43.10 - Post-traumatic stress disorder, unspecified (3) Opioid use disorder, severe, dependence: Status: Acute Code(s): F11.20 - Opioid dependence, uncomplicated (4) Cocaine abuse: Status: Acute Code(s): F14.10 - Cocaine abuse, uncomplicated (5) HTN (hypertension): Status: Acute Code(s): I10 - Essential (primary) hypertension (6) History of CVA (cerebrovascular accident): Status: Acute Code(s): Z86.73 - Personal history of transient ischemic attack (TIA), and cerebral infarction without residual deficits Plan HPI: Patient is a 55-year-old female with history of depression, PTSD, alcohol abuse, possibly schizoaffective disorder, CVA, hypertension who presents for SI with recent attempt to hang herself from a tree. Patient reports that she was doing well for years on her medications; she says she stopped them week ago but does not know why other than they make her feel other than herself... Patient became depressed, suicidal tried to end her life. She is not sure why it took her a few days to present to the ED. Patient endorses auditory hallucinations. She says she drinks about a pt of alcohol a day and is experiencing withdrawal with a history of withdrawal seizures. To this marine underwriter she denies other substance abuse however endorsed a nursing that she uses cocaine and heroin and her U tox was positive for both. Patient would like to get back on her medications Formulation/clinical reasoning: Patient is a limited historian; she lists medications that she was on which is different from her med rec of recent meds (medications she listed included Prozac, Wellbutrin, clonidine, trazodone and risperidone). Will treat for alcohol withdrawal; will continue with recent medication prescriptions. Not sure if patient has neurocognitive disorder. Patient reports AH which is independent of mood so will diagnose with schizoaffective disorder Hospital course: 05/16 Patient remains sleepy and mostly keeping to herself; not scoring on CIWA so discontinued. Patient continues to have AH and remains internally preoccupied also reporting depression and anxiety. Ems Coordinator discussed medications with her and she feels that Risperdal is more helpful than Zyprexa which was started on admission and asks for it to be switched. 05/17 Patient up and out of bed and dressed in new clothes this morning, wearing glasses. She says she is a little better. Difficult with which to engage. Says she continues to have AH and would like risperidone to be increased. -no manic symptoms and more organized will increase Risperdal 05/18 Patient says AH remain; they are little less with her still quite bothersome. She asks for Ativan to help deal with them saying they are command in nature, telling her to harm herself and she explains this is what she heard regarding recent attempt to hang herself. Patient agrees to low-dose Ativan that will only be used during this admission and not for discharge. Discussed UDS positi ve for cocaine and fentanyl; patient says she never uses fentanyl so cocaine must have been laced -will add Ativan 0.5 mg t.i.d. p.r.n. while she is on the unit and while Risperdal takes effect -seems that Risperdal has helped a little; will leave it at 4 mg for now to see if it has continued effect; otherwise will increase 05/19 patient reports continued AH; agrees to increasing Risperdal -attempted to get labs but phlebotomy had a difficult time Plan: CV q15 INCREASed to Risperdal 6mg q.h.s.; may titrate Discontinue Zyprexa 5 mg q.h.s. *Time limited Ativan 0.5 mg t.i.d. p.r.n. Depakote ER 500 mg q.h.s. Gabapentin 300 mg t.i.d. Hydrochlorothiazide Venlafaxine 75 mg daily Aspirin 81 mg daily Atorvastatin 10 mg daily Methadone 140 mg daily Patient educated on: diagnosis, medication risk/benefits and therapeutic strategies Informed Consent: understands Reason for continued inpatient stay Substantial Risk for: rapid decompensation Time Spent With Patient Time: Total time managing care of this patient today ____ minutes.
[2025-05-19 20:00] VITALS: BP 144/90; PULSE 85; RESP 20; TEMP 37.3; O2SAT 97
[2025-05-20] MEDS: methADONE HCl 20 MG/2 ML ORAL.CONC 140 MG PO (07:56)
[2025-05-20 08:00] VITALS: BP 170/97; PULSE 96; RESP 18; TEMP 36.8; O2SAT 98
[2025-05-20 08:24] VITALS: BP 170/97
[2025-05-20] MEDS: Venlafaxine HCl ER 75 MG CAP.ER.24H PO (08:24)
--- NOTE | 2025-05-20 15:39 | PM.EVENT ---
Event Note Date of Service: 05/20/25 Event Note: Patient's blood pressures continued to be elevated, we will add lisinopril, check labs on Sunday Time Spent With Patient Time: Total time managing care of this patient today ____ minutes.
[2025-05-20 15:53] VITALS: BP 153/96
--- NOTE | 2025-05-20 16:28 | HO.PSYCHPN ---
Subjective Subjective Date of Service: 05/20/25 Reason For Visit: depressive d/o, opioid use d/o Interim History: met with patient; discussed with team pt says AH is better but still quit bothersome; asking for benzo's but agrees to use prn low dose risperdal. Discussed sedation..and poem writer not clear origin since it occurs even before methadone. Pt agrees to try Provigil Mental Status Exam Mental Status Exam Narrative: Pt is alert and oriented; behavior is isolative but a little more out in the milieu, drowsy; cooperative on approach: patient is not in distress; dressed in casual attire, disheveled, intermittently fecally incontinent, but does shower; mood is described as anxious and affect congruent, downcast, blunted; eye contact appropriate; Speech is normal volume, rate and prosody; some psychomotor retardation present; thought process is goal directed, concrete; Thought content is dealing with command AH; no overt expression of delusional content; currently denies any SI/HI. Positive for AH; patient does appear internally preoccupied. Patients insight and judgment impaired but improved and likely heading toward baseline. Diagnostics Vital Signs (24Hr): Vital Signs - 24 hr 05/19/25 20:00 05/20/25 08:00 05/20/25 08:24 Temperature 99.1 F 98.2 F Pulse Rate 85 96 Respiratory Rate 20 18 Blood Pressure 144/90 H 170/97 H 170/97 H Pulse Oximetry 97 98 Oxygen Delivery Method Room Air Room Air 05/20/25 15:53 Temperature Pulse Rate Respiratory Rate Blood Pressure 153/96 H Pulse Oximetry Oxygen Delivery Method BMI result Body Mass Index 34.2 Medications Medications Current Medications Acetaminophen (Acetaminophen 325 Mg Tablet) 650 mg PO Q6H PRN PRN Reason: Headache/Pain, Scale 1-10 Last Admin: 05/17/25 20:35 Dose: 650 mg Al Hydroxide/Mg Hydroxide (Magnesium Hydrox/Alum Hydrox 30 Ml Oral.Susp) 30 ml PO Q6H PRN PRN Reason: Heartburn/Nausea Aspirin (Aspirin 81 Mg Tab.Chew) 81 mg PO DAILY [facility] Last Admin: 05/20/25 08:25 Dose: 81 mg Atorvastatin Calcium (Atorvastatin Calcium 40 Mg Tablet) 40 mg PO DAILY [facility] Last Admin: 05/20/25 08:25 Dose: 40 mg Divalproex Sodium (Divalproex Sodium Er 500 Mg Tab.Er.24h) 500 mg PO BEDTIME [facility] Last Admin: 05/19/25 21:02 Dose: 500 mg Gabapentin (Gabapentin 300 Mg Capsule) 300 mg PO TID [facility] Last Admin: 05/20/25 15:53 Dose: 300 mg Hydrochlorothiazide (Hydrochlorothiazide 25 Mg Tablet) 25 mg PO DAILY [facility]; Protocol Last Admin: 05/20/25 08:24 Dose: 25 mg Hydroxyzine HCl (Hydroxyzine Hcl 25 Mg Tablet) 25 mg PO Q6H PRN PRN Reason: mild anxiety Last Admin: 05/19/25 21:03 Dose: 25 mg Lisinopril (Lisinopril 5 Mg Tablet) 5 mg PO DAILY [facility]; Protocol Last Admin: 05/20/25 15:53 Dose: 5 mg Loperamide HCl (Loperamide Hcl 2 Mg Capsule) 2 mg PO Q6H PRN PRN Reason: loose stool Magnesium Hydroxide (Milk Of Magnesia 30 Ml Oral.Susp) 30 ml PO DAILY PRN PRN Reason: Constipation Melatonin (Melatonin 3 Mg Tablet) 3 mg PO BEDTIME PRN PRN Reason: Insomnia Last Admin: 05/19/25 21:03 Dose: 3 mg Methadone HCl (Methadone Hcl 20 Mg/2 Ml Oral.Conc) 140 mg PO DAILY@0800 [facility] Last Admin: 05/20/25 07:56 Dose: 140 mg Nicotine Polacrilex (Nicotine Polacrilex 2 Mg Gum) 4 mg BUCCAL Q2H PRN PRN Reason: Nicotine Cravings Last Admin: 05/19/25 21:03 Dose: 4 mg Omeprazole (Omeprazole 20 Mg Capsule.Dr) 20 mg PO DAILY@0630 [facility] Last Admin: 05/20/25 07:56 Dose: 20 mg Risperidone (Risperidone 3 Mg Tablet) 6 mg PO BEDTIME [facility] Last Admin: 05/19/25 21:03 Dose: 6 mg Risperidone (Risperidone 0.5 Mg Tablet) 0.5 mg PO Q4H PRN PRN Reason: voices/AH Simethicone (Simethicone 80 Mg Tab.Chew) 80 mg PO QIDWMHS PRN PRN Reason: flatulance Last Admin: 05/18/25 18:45 Dose: 80 mg Thiamine HCl (Thiamine Hcl 100 Mg Tablet) 100 mg PO DAILY [facility] Last Admin: 05/20/25 08:24 Dose: 100 mg Trazodone HCl (Trazodone Hcl 50 Mg Tablet) 150 mg PO BEDTIME [facility] Last Admin: 05/19/25 21:03 Dose: 150 mg Venlafaxine HCl (Venlafaxine Hcl Er 75 Mg Cap.Er.24h) 75 mg PO DAILY [facility] Last Admin: 05/20/25 08:24 Dose: 75 mg Allergies Allergies Allergy/AdvReac Type Severity Reaction Status Date / Time Iodinated Contrast Media Allergy Severe Anaphylaxis Verified 05/14/25 19:45 (Contrast Dye) onion Allergy Severe Anaphylaxis Verified 05/14/25 19:45 latex Allergy Unknown Verified 05/14/25 19:45 Penicillins Allergy Unknown Verified 09/12/24 17:21 shellfish derived (shellfish) Allergy Unknown Verified 05/14/25 19:45 Assessment & Plan Assessment & Plan (1) Schizoaffective disorder: Status: Acute Code(s): F25.9 - Schizoaffective disorder, unspecified (2) PTSD (post-traumatic stress disorder): Status: Acute Code(s): F43.10 - Post-traumatic stress disorder, unspecified (3) Opioid use disorder, severe, dependence: Status: Acute Code(s): F11.20 - Opioid dependence, uncomplicated (4) Cocaine abuse: Status: Acute Code(s): F14.10 - Cocaine abuse, uncomplicated (5) HTN (hypertension): Status: Acute Code(s): I10 - Essential (primary) hypertension (6) History of CVA (cerebrovascular accident): Status: Acute Code(s): Z86.73 - Personal history of transient ischemic attack (TIA), and cerebral infarction without residual deficits Plan HPI: Patient is a 55-year-old female with history of depression, PTSD, alcohol abuse, possibly schizoaffective disorder, CVA, hypertension who presents for SI with recent attempt to hang herself from a tree. Patient reports that she was doing well for years on her medications; she says she stopped them week ago but does not know why other than they make her feel other than herself... Patient became depressed, suicidal tried to end her life. She is not sure why it took her a few days to present to the ED. Patient endorses auditory hallucinations. She says she drinks about a pt of alcohol a day and is experiencing withdrawal with a history of withdrawal seizures. To this poem writer she denies other substance abuse however endorsed a nursing that she uses cocaine and heroin and her U tox was positive for both. Patient would like to get back on her medications Formulation/clinical reasoning: Patient is a limited historian; she lists medications that she was on which is different from her med rec of recent meds (medications she listed included Prozac, Wellbutrin, clonidine, trazodone and risperidone). Will treat for alcohol withdrawal; will continue with recent medication prescriptions. Not sure if patient has neurocognitive disorder. Patient reports AH which is independent of mood so will diagnose with schizoaffective disorder Hospital course: 05/16 Patient remains sleepy and mostly keeping to herself; not scoring on CIWA so discontinued. Patient continues to have AH and remains internally preoccupied also reporting depression and anxiety. Analytics Manager discussed medications with her and she feels that Risperdal is more helpful than Zyprexa which was started on admission and asks for it to be switched. 05/17 Patient up and out of bed and dressed in new clothes this morning, wearing glasses. She says she is a little better. Difficult with which to engage. Says she continues to have AH and would like risperidone to be increased. -no manic symptoms and more organized will increase Risperdal 05/18 Patient says AH remain; they are little less with her still quite bothersome. She asks for Ativan to help deal with them saying they are command in nature, telling her to harm herself and she explains this is what she heard regarding recent attempt to hang herself. Patient agrees to low-dose Ativan that will only be used during this admission and not for discharge. Discussed UDS positive for cocaine and fentanyl; patient says she never uses fentanyl so cocaine must have been laced -will add Ativan 0.5 mg t.i.d. p.r.n. while she is on the unit and while Risperdal takes effect -seems that Risperdal has helped a little; will leave it at 4 mg for now to see if it has continued effect; otherwise will increase 05/19 patient reports continued AH; agrees to increasing Risperdal -attempted to get labs but phlebotomy had a difficult time 05/20 better, but still with AH; adding risperdal 0.5mg prn for AH; adding provigil for daytime sedation Plan: CV q15 INCREASed to Risperdal 6mg q.h.s.; may titrate Discontinue Zyprexa 5 mg q.h.s. *Time limited Ativan 0.5 mg t.i.d. p.r.n. Depakote ER 500 mg q.h.s. Gabapentin 300 mg t.i.d. Hydrochlorothiazide Venlafaxine 75 mg daily Aspirin 81 mg daily Atorvastatin 10 mg daily Methadone 140 mg daily Patient educated on: diagnosis, medication risk/benefits and therapeutic strategies Informed Consent: understands and further education needed Reason for continued inpatient stay Substantial Risk for: rapid decompensation Time Spent With Patient Time: Total time managing care of this patient today ____ minutes.
[2025-05-20 19:40] VITALS: BP 152/87; PULSE 99; RESP 16; TEMP 37.1; O2SAT 100
[2025-05-21 07:00] VITALS: BMI 36.1
[2025-05-21] MEDS: methADONE HCl 20 MG/2 ML ORAL.CONC 140 MG PO (07:49)
[2025-05-21 08:00] VITALS: BP 133/63; PULSE 79; TEMP 36.8; O2SAT 93
[2025-05-21 08:50] VITALS: BP 133/63
[2025-05-21] MEDS: Venlafaxine HCl ER 75 MG CAP.ER.24H PO (08:50)
[2025-05-21 09:06] LABS: Ammonia 52 umol/L (13-55)
[2025-05-21 09:14] LABS: Alanine Aminotransferase 16 U/L (0-31); Albumin Level 3.9 g/dL (3.5-5.0); Alkaline Phosphatase 86 U/L (39-117); Aspartate Amino Transferase 21 U/L (5-31); Total Protein 7.1 g/dL (6.5-8.0)
--- NOTE | 2025-05-21 18:37 | P.PNPSI_ITS ---
Subjective Subjective Date of Service: 05/21/25 Reason For Visit: depressive d/o, opioid use d/o Interim History: Met with patient; discussed with team Patient reports that AH is much better today and not really very bothersome. She also feels that Provigil has been helpful and of note patient does seem more alert today,, not nodding off throughout the day. Mental Status Exam Mental Status Exam Narrative: Pt is alert and oriented; behavior is isolative but a little more out in the milieu, much less drowsy; cooperative on approach: patient is not in distress; dressed in casual attire, disheveled, intermittently fecally incontinent, malodorous but does shower; mood is described as better and affect congruent, brighter, more expressive; eye contact appropriate; Speech is normal volume, rate and prosody; less psychomotor retardation present; thought process is goal directed, concrete; Thought content is treatment; no overt expression of delusional content; currently denies any SI/HI. Positive for AH but says it is less and not bothersome; Patients insight and judgment impaired but improved and likely heading toward baseline. Diagnostics Vital Signs (24Hr): Vital Signs - 24 hr 05/20/25 19:40 05/21/25 08:00 05/21/25 08:50 Temperature 98.7 F 98.2 F Pulse Rate 99 79 Respiratory Rate 16 Blood Pressure 152/87 H 133/63 133/63 Pulse Oximetry 100 93 Oxygen Delivery Method Room Air Room Air BMI result Body Mass Index 36.1 Labs Labs: Laboratory Results - last 48 hr 05/21/25 08:46 Total Bilirubin 0.7 Direct Bilirubin 0.3 AST 21 ALT 16 Alkaline Phosphatase 86 Ammonia 52 Total Protein 7.1 Albumin 3.9 Valproic Acid 19.9 L Medications Medications Current Medications Acetaminophen (Acetaminophen 325 Mg Tablet) 650 mg PO Q6H PRN PRN Reason: Headache/Pain, Scale 1-10 Last Admin: 05/21/25 14:26 Dose: 650 mg Al Hydroxide/Mg Hydroxide (Magnesium Hydrox/Alum Hydrox 30 Ml Oral.Susp) 30 ml PO Q6H PRN PRN Reason: Heartburn/Nausea Aspirin (Aspirin 81 Mg Tab.Chew) 81 mg PO DAILY [facility] Last Admin: 05/21/25 08:50 Dose: 81 mg Atorvastatin Calcium (Atorvastatin Calcium 40 Mg Tablet) 40 mg PO DAILY [facility] Last Admin: 05/21/25 08:51 Dose: 40 mg Divalproex Sodium (Divalproex Sodium Er 500 Mg Tab.Er.24h) 500 mg PO BEDTIME [facility] Last Admin: 05/20/25 20:19 Dose: 500 mg Gabapentin (Gabapentin 300 Mg Capsule) 300 mg PO TID [facility] Last Admin: 05/21/25 14:24 Dose: 300 mg Hydrochlorothiazide (Hydrochlorothiazide 25 Mg Tablet) 25 mg PO DAILY [facility]; Protocol Last Admin: 05/21/25 08:51 Dose: 25 mg Hydroxyzine HCl (Hydroxyzine Hcl 25 Mg Tablet) 25 mg PO Q6H PRN PRN Reason: mild anxiety Last Admin: 05/21/25 14:26 Dose: 25 mg Lisinopril (Lisinopril 5 Mg Tablet) 5 mg PO DAILY [facility]; Protocol Last Admin: 05/21/25 08:50 Dose: 5 mg Loperamide HCl (Loperamide Hcl 2 Mg Capsule) 2 mg PO Q6H PRN PRN Reason: loose stool Magnesium Hydroxide (Milk Of Magnesia 30 Ml Oral.Susp) 30 ml PO DAILY PRN PRN Reason: Constipation Melatonin (Melatonin 3 Mg Tablet) 3 mg PO BEDTIME PRN PRN Reason: Insomnia Last Admin: 05/20/25 20:18 Dose: 3 mg Methadone HCl (Methadone Hcl 20 Mg/2 Ml Oral.Conc) 140 mg PO DAILY@0800 [facility] Last Admin: 05/21/25 07:49 Dose: 140 mg Modafinil (Modafinil 100 Mg Tablet) 100 mg PO DAILY [facility] Last Admin: 05/21/25 08:50 Dose: 100 mg Nicotine Polacrilex (Nicotine Polacrilex 2 Mg Gum) 4 mg BUCCAL Q2H PRN PRN Reason: Nicotine Cravings Last Admin: 05/19/25 21:03 Dose: 4 mg Omeprazole (Omeprazole 20 Mg Capsule.Dr) 20 mg PO DAILY@0630 [facility] Last Admin: 05/21/25 07:05 Dose: 20 mg Risperidone (Risperidone 3 Mg Tablet) 6 mg PO BEDTIME [facility] Last Admin: 05/20/25 20:18 Dose: 6 mg Risperidone (Risperidone 0.5 Mg Tablet) 0.5 mg PO Q4H PRN PRN Reason: voices/AH Last Admin: 05/21/25 18:15 Dose: 0.5 mg Simethicone (Simethicone 80 Mg Tab.Chew) 80 mg PO QIDWMHS PRN PRN Reason: flatulance Last Admin: 05/20/25 20:19 Dose: 80 mg Thiamine HCl (Thiamine Hcl 100 Mg Tablet) 100 mg PO DAILY [facility] Last Admin: 05/21/25 08:51 Dose: 100 mg Trazodone HCl (Trazodone Hcl 50 Mg Tablet) 150 mg PO BEDTIME [facility] Last Admin: 05/20/25 20:19 Dose: 150 mg Venlafaxine HCl (Venlafaxine Hcl Er 75 Mg Cap.Er.24h) 75 mg PO DAILY [facility] Last Admin: 05/21/25 08:50 Dose: 75 mg Allergies Allergies Allergy/AdvReac Type Severity Reaction Status Date / Time Iodinated Contrast Media Allergy Severe Anaphylaxis Verified 05/14/25 19:45 (Contrast Dye) onion Allergy Severe Anaphylaxis Verified 05/14/25 19:45 latex Allergy Unknown Verified 05/14/25 19:45 Penicillins Allergy Unknown Verified 09/12/24 17:21 shellfish derived (shellfish) Allergy Unknown Verified 05/14/25 19:45 Assessment & Plan Assessment & Plan (1) Schizoaffective disorder: Status: Acute Code(s): F25.9 - Schizoaffective disorder, unspecified (2) PTSD (post-traumatic stress disorder): Status: Acute Code(s): F43.10 - Post-traumatic stress disorder, unspecified (3) Opioid use disorder, severe, dependence: Status: Acute Code(s): F11.20 - Opioid dependence, uncomplicated (4) Cocaine abuse: Status: Acute Code(s): F14.10 - Cocaine abuse, uncomplicated (5) HTN (hypertension): Status: Acute Code(s): I10 - Essential (primary) hypertension (6) History of CVA (cerebrovascular accident): Status: Acute Code(s): Z86.73 - Personal history of transient ischemic attack (TIA), and cerebral infarction without residual deficits Plan HPI: Patient is a 55-year-old female with history of depression, PTSD, alcohol abuse, possibly schizoaffective disorder, CVA, hypertension who presents for SI with recent attempt to hang herself from a tree. Patient reports that she was doing well for years on her medications; she says she stopped them week ago but does not know why other than they make her feel other than herself... Patient became depressed, suicidal tried to end her life. She is not sure why it took her a few days to present to the ED. Patient endorses auditory hallucinations. She says she drinks about a pt of alcohol a day and is experiencing withdrawal with a history of withdrawal seizures. To this song writer she denies other substance abuse however endorsed a nursing that she uses cocaine and heroin and her U tox was positive for both. Patient would like to get back on her medications Formulation/clinical reasoning: Patient is a limited historian; she lists medications that she was on which is different from her med rec of recent meds (medications she listed included Prozac, Wellbutrin, clonidine, trazodone and risperidone). Will treat for alcohol withdrawal; will continue with recent medication prescriptions. Not sure if patient has neurocognitive disorder. Patient reports AH which is independent of mood so will diagnose with schizoaffective disorder Hospital course: 05/16 Patient remains sleepy and mostly keeping to herself; not scoring on CIWA so discontinued. Patient continues to have AH and remains internally preoccupied also reporting depression and anxiety. Nut Sorter discussed medications with her and she feels that Risperdal is more helpful than Zyprexa which was started on admission and asks for it to be switched. 05/17 Patient up and out of bed and dressed in new clothes this morning, wearing glasses. She says she is a little better. Difficult with which to engage. Says she continues to have AH and would like risperidone to be increased. -no manic symptoms and more organized will increase Risperdal 05/18 Patient says AH remain; they are little less with her still quite bothersome. She asks for Ativan to help deal with them saying they are command in nature, telling her to harm herself and she explains this is what she heard regarding recent attempt to hang herself. Patient agrees to low-dose Ativan that will only be used during this admission and not for discharge. Discussed UDS positive for cocaine and fentanyl; patient says she never uses fentanyl so cocaine must have been laced -will add Ativan 0.5 mg t.i.d. p.r.n. while she is on the unit and while Risperdal takes effect -seems that Risperdal has helped a little; will leave it at 4 mg for now to see if it has continued effect; otherwise will increase 05/19 patient reports continued AH; agrees to increasing Risperdal -attempted to get labs but phlebotomy had a difficult time 05/20 better, but still with AH; adding risperdal 0.5mg prn for AH; adding provigil for daytime sedation 05/21 Patient reports that AH is much better today and not really very bothersome. She also feels that Provigil has been helpful and of note patient does seem more alert today,, not nodding off throughout the day. Plan: CV q15 Continue Provigil 100 mg daily for sedation, likely due to methadone Continue Risperdal 6mg q.h.s.; may titrate Discontinue Zyprexa 5 mg q.h.s. *Time limited Ativan 0.5 mg t.i.d. p.r.n. Depakote ER 500 mg q.h.s. Gabapentin 300 mg t.i.d. Hydrochlorothiazide Venlafaxine 75 mg daily Aspirin 81 mg daily Atorvastatin 10 mg daily Methadone 140 mg daily Patient educated on: diagnosis, medication risk/benefits and substance abuse Informed Consent: understands and further education needed Reason for continued inpatient stay Substantial Risk for: rapid decompensation Time Spent With Patient Time: Total time managing care of this patient today ____ minutes.
[2025-05-21 20:00] VITALS: RESP 16
[2025-05-22] MEDS: methADONE HCl 20 MG/2 ML ORAL.CONC 140 MG PO (07:46)
[2025-05-22 08:00] VITALS: BP 153/89; PULSE 79; RESP 16; TEMP 36.4; O2SAT 99
[2025-05-22 09:20] VITALS: BP 153/89
[2025-05-22] MEDS: Venlafaxine HCl ER 75 MG CAP.ER.24H PO (09:20)
[2025-05-22 14:38] LABS: Appearance Urine Clear; Glucose Urine UA Negative (Negative); PH 7.0 (5.0-9.0); Specific Gravity - Urine 1.015 (1.005-1.025); UMIC TRIGGER UACC YES
[2025-05-22 15:09] LABS: Other Crystals Urine Present
--- NOTE | 2025-05-22 18:31 | P.PNPSI_ITS ---
Subjective Subjective Date of Service: 05/22/25 Reason For Visit: depressive d/o, opioid use d/o Interim History: met with patient; discussed with team pt more alert overall, but still with periods of sedation. AH remain better and able to be ignored. She asks is she can have kitchen priviledges Mental Status Exam Mental Status Exam Narrative: Pt is alert and oriented; behavior is less isolative, out in the milieu more, much less drowsy; cooperative on approach: patient is not in distress; dressed in casual attire, disheveled, intermittently fecally incontinent, malodorous but does shower; mood is described as ok and affect congruent overall brighter, more expressive; eye contact appropriate; Speech is normal volume, rate and prosody; less psychomotor retardation present; thought process is goal directed, concrete; Thought content is treatment; no overt expression of delusional content; currently denies any SI/HI. Positive for AH but says it is less and not bothersome; Patients insight and judgment impaired but improved and likely heading toward baseline. Diagnostics Vital Signs (24Hr): Vital Signs - 24 hr 05/21/25 20:00 05/22/25 08:00 05/22/25 09:20 Temperature 97.5 F Pulse Rate 79 Respiratory Rate 16 16 Blood Pressure 153/89 H 153/89 H Pulse Oximetry 99 Oxygen Delivery Method Room Air 05/22/25 09:20 Temperature Pulse Rate Respiratory Rate Blood Pressure 153/89 H Pulse Oximetry Oxygen Delivery Method BMI result Body Mass Index 36.1 Labs Labs: Laboratory Results - last 48 hr 05/21/25 05/22/25 08:46 14:22 Total Bilirubin 0.7 Direct Bilirubin 0.3 AST 21 ALT 16 Alkaline Phosphatase 86 Ammonia 52 Total Protein 7.1 Albumin 3.9 Urine Color Yellow Urine Appearance Clear Urine pH 7.0 Ur Specific [place] 1.015 Urine Protein Negative Urine Glucose (UA) Negative Urine Ketones Negative Urine Blood Negative Urine Nitrite Negative Ur Leukocyte Esterase Trace H Urine RBC 0-2 Urine WBC 0-5 Ur Squamous Epith Cells 0-2 Other Crystals Present Urine Bacteria Trace Hyaline Casts 3-5 Valproic Acid 19.9 L Medications Medications Current Medications Acetaminophen (Acetaminophen 325 Mg Tablet) 650 mg PO Q6H PRN PRN Reason: Headache/Pain, Scale 1-10 Last Admin: 05/21/25 21:49 Dose: 650 mg Al Hydroxide/Mg Hydroxide (Magnesium Hydrox/Alum Hydrox 30 Ml Oral.Susp) 30 ml PO Q6H PRN PRN Reason: Heartburn/Nausea Aspirin (Aspirin 81 Mg Tab.Chew) 81 mg PO DAILY [facility] Last Admin: 05/22/25 09:20 Dose: 81 mg Atorvastatin Calcium (Atorvastatin Calcium 40 Mg Tablet) 40 mg PO DAILY [facility] Last Admin: 05/22/25 09:20 Dose: 40 mg Divalproex Sodium (Divalproex Sodium Er 500 Mg Tab.Er.24h) 500 mg PO BEDTIME [facility] Last Admin: 05/21/25 21:50 Dose: 500 mg Gabapentin (Gabapentin 300 Mg Capsule) 300 mg PO TID [facility] Last Admin: 05/22/25 14:16 Dose: 300 mg Hydrochlorothiazide (Hydrochlorothiazide 25 Mg Tablet) 25 mg PO DAILY [facility]; Protocol Last Admin: 05/22/25 09:20 Dose: 25 mg Hydroxyzine HCl (Hydroxyzine Hcl 25 Mg Tablet) 25 mg PO Q6H PRN PRN Reason: mild anxiety Last Admin: 05/22/25 16:51 Dose: 25 mg Lisinopril (Lisinopril 5 Mg Tablet) 5 mg PO DAILY [facility]; Protocol Last Admin: 05/22/25 09:20 Dose: 5 mg Loperamide HCl (Loperamide Hcl 2 Mg Capsule) 2 mg PO Q6H PRN PRN Reason: loose stool Magnesium Hydroxide (Milk Of Magnesia 30 Ml Oral.Susp) 30 ml PO DAILY PRN PRN Reason: Constipation Melatonin (Melatonin 3 Mg Tablet) 3 mg PO BEDTIME PRN PRN Reason: Insomnia Last Admin: 05/21/25 21:50 Dose: 3 mg Methadone HCl (Methadone Hcl 20 Mg/2 Ml Oral.Conc) 140 mg PO DAILY@0800 [facility] Last Admin: 05/22/25 07:46 Dose: 140 mg Modafinil (Modafinil 100 Mg Tablet) 100 mg PO DAILY [facility] Last Admin: 05/22/25 09:20 Dose: 100 mg Nicotine Polacrilex (Nicotine Polacrilex 2 Mg Gum) 4 mg BUCCAL Q2H PRN PRN Reason: Nicotine Cravings Last Admin: 05/19/25 21:03 Dose: 4 mg Omeprazole (Omeprazole 20 Mg Capsule.Dr) 20 mg PO DAILY@0630 [facility] Last Admin: 05/22/25 06:06 Dose: 20 mg Risperidone (Risperidone 3 Mg Tablet) 6 mg PO BEDTIME [facility] Last Admin: 05/21/25 21:50 Dose: 6 mg Risperidone (Risperidone 0.5 Mg Tablet) 0.5 mg PO Q4H PRN PRN Reason: voices/AH Last Admin: 05/21/25 18:15 Dose: 0.5 mg Simethicone (Simethicone 80 Mg Tab.Chew) 80 mg PO QIDWMHS PRN PRN Reason: flatulance Last Admin: 05/21/25 21:49 Dose: 80 mg Thiamine HCl (Thiamine Hcl 100 Mg Tablet) 100 mg PO DAILY [facility] Last Admin: 05/22/25 09:21 Dose: 100 mg Trazodone HCl (Trazodone Hcl 50 Mg Tablet) 150 mg PO BEDTIME [facility] Last Admin: 05/21/25 21:50 Dose: 150 mg Venlafaxine HCl (Venlafaxine Hcl Er 75 Mg Cap.Er.24h) 75 mg PO DAILY [facility] Last Admin: 05/22/25 09:20 Dose: 75 mg Allergies Allergies Allergy/AdvReac Type Severity Reaction Status Date / Time Iodinated Contrast Media Allergy Severe Anaphylaxis Verified 05/14/25 19:45 (Contrast Dye) onion Allergy Severe Anaphylaxis Verified 05/14/25 19:45 latex Allergy Unknown Verified 05/14/25 19:45 Penicillins Allergy Unknown Verified 09/12/24 17:21 shellfish derived (shellfish) Allergy Unknown Verified 05/14/25 19:45 Assessment & Plan Assessment & Plan (1) Schizoaffective disorder: Status: Acute Code(s): F25.9 - Schizoaffective disorder, unspecified (2) PTSD (post-traumatic stress disorder): Status: Acute Code(s): F43.10 - Post-traumatic stress disorder, unspecified (3) Opioid use disorder, severe, dependence: Status: Acute Code(s): F11.20 - Opioid dependence, uncomplicated (4) Cocaine abuse: Status: Acute Code(s): F14.10 - Cocaine abuse, uncomplicated (5) HTN (hypertension): Status: Acute Code(s): I10 - Essential (primary) hypertension (6) History of CVA (cerebrovascular accident): Status: Acute Code(s): Z86.73 - Personal history of transient ischemic attack (TIA), and cerebral infarction without residual deficits Plan HPI: Patient is a 55-year-old female with history of depression, PTSD, alcohol abuse, possibly schizoaffective disorder, CVA, hypertension who presents for SI with recent attempt to hang herself from a tree. Patient reports that she was doing well for years on her medications; she says she stopped them week ago but does not know why other than they make her feel other than herself... Patient became depressed, suicidal tried to end her life. She is not sure why it took her a few days to present to the ED. Patient endorses auditory hallucinations. She says she drinks about a pt of alcohol a day and is experiencing withdrawal with a history of withdrawal seizures. To this contract writer she denies other substance abuse however endorsed a nursing that she uses cocaine and heroin and her U tox was positive for both. Patient would like to get back on her medications Formulation/clinical reasoning: Patient is a limited historian; she lists medications that she was on which is different from her med rec of recent meds (medications she listed included Prozac, Wellbutrin, clonidine, trazodone and risperidone). Will treat for alcohol withdrawal; will continue with recent medication prescriptions. Not sure if patient has neurocognitive disorder. Patient reports AH which is independent of mood so will diagnose with schizoaffective disorder Hospital course: 05/16 Patient remains sleepy and mostly keeping to herself; not scoring on CIWA so discontinued. Patient continues to have AH and remains internally preoccupied also reporting depression and anxiety. Computer Systems Software Engineer discussed medications with her and she feels that Risperdal is more helpful than Zyprexa which was started on admission and asks for it to be switched. 05/17 Patient up and out of bed and dressed in new clothes this morning, wearing glasses. She says she is a little better. Difficult with which to engage. Says she continues to have AH and would like risperidone to be increased. -no manic symptoms and more organized will increase Risperdal 05/18 Patient says AH remain; they are little less with her still quite bothersome. She asks for Ativan to help deal with them saying they are command in nature, telling her to harm herself and she explains this is what she heard regarding recent attempt to hang herself. Patient agrees to low-dose Ativan that will only be used during this admission and not for discharge. Discussed UDS positive for cocaine and fentanyl; patient says she never uses fentanyl so cocaine must have been laced -will add Ativan 0.5 mg t.i.d. p.r.n. while she is on the unit and while Risperdal takes effect -seems that Risperdal has helped a little; will leave it at 4 mg for now to see if it has continued effect; otherwise will increase 05/19 patient reports continued AH; agrees to increasing Risperdal -attempted to get labs but phlebotomy had a difficult time 05/20 better, but still with AH; adding risperdal 0.5mg prn for AH; adding provigil for daytime sedation 05/22 improving; continue plan; discussed with nursing about kitchen privs Plan: CV q15 INCREASed to Risperdal 6mg q.h.s.; may titrate Discontinue Zyprexa 5 mg q.h.s. *Time limited Ativan 0.5 mg t.i.d. p.r.n. Depakote ER 500 mg q.h.s. Gabapentin 300 mg t.i.d. Hydrochlorothiazide Venlafaxine 75 mg daily Aspirin 81 mg daily Atorvastatin 10 mg daily Methadone 140 mg daily Patient educated on: diagnosis, medication risk/benefits and therapeutic strategies Informed Consent: understands and further education needed Reason for continued inpatient stay Substantial Risk for: stable for discharge and rapid decompensation Time Spent With Patient Time: Total time managing care of this patient today ____ minutes.
[2025-05-22 20:10] VITALS: BP 105/55; PULSE 98; RESP 16; TEMP 36.5; O2SAT 94
[2025-05-23] MEDS: methADONE HCl 20 MG/2 ML ORAL.CONC 140 MG PO (07:59)
[2025-05-23 08:00] VITALS: BP 106/70; PULSE 81; RESP 18; TEMP 36.8; O2SAT 100
[2025-05-23] MEDS: Venlafaxine HCl ER 75 MG CAP.ER.24H PO (08:06)
--- NOTE | 2025-05-23 09:59 | HO.PSYCHPN ---
Subjective Subjective Date of Service: 05/23/25 Reason For Visit: depressive d/o, opioid use d/o Interim History: Met with patient; discussed with team Says her AH were better and today were worse. nodding off today. Says she feels tired and says she has been falling . Remains with some SI but help seeking. Review of Systems Review of Systems Denies any shortness of breath, chest pain, palpitations, dizziness, lightheadedness, headaches, dysuria, abdominal pain or discomfort, nausea, vomiting or diarrhea. Mental Status Exam Mental Status Exam Narrative: Pt is alert and oriented; behavior is isolative but a little more out in the milieu, much less drowsy; cooperative on approach: patient is not in distress; dressed in casual attire, disheveled, intermittently fecally incontinent, malodorous but does shower; mood is described as better and affect congruent, brighter, more expressive; eye contact appropriate; Speech is normal volume, rate and prosody; less psychomotor retardation present; thought process is goal directed, concrete; Thought content is treatment; no overt expression of delusional content; currently denies any SI/HI. Positive for AH but says it is less and not bothersome; Patients insight and judgment impaired but improved and likely heading toward baseline. Diagnostics Vital Signs (24Hr): Vital Signs - 24 hr 05/22/25 20:10 05/23/25 08:00 Temperature 97.7 F 98.2 F Pulse Rate 98 81 Respiratory Rate 16 18 Blood Pressure 105/55 L 106/70 Pulse Oximetry 94 100 Oxygen Delivery Method Room Air Room Air BMI result Body Mass Index 36.1 Labs Labs: Laboratory Results - last 48 hr 05/22/25 14:22 Urine Color Yellow Urine Appearance Clear Urine pH 7.0 Ur Specific [place] 1.015 Urine Protein Negative Urine Glucose (UA) Negative Urine Ketones Negative Urine Blood Negative Urine Nitrite Negative Ur Leukocyte Esterase Trace H Urine RBC 0-2 Urine WBC 0-5 Ur Squamous Epith Cells 0-2 Other Crystals Present Urine Bacteria Trace Hyaline Casts 3-5 Medications Medications Current Medications Acetaminophen (Acetaminophen 325 Mg Tablet) 650 mg PO Q6H PRN PRN Reason: Headache/Pain, Scale 1-10 Last Admin: 05/21/25 21:49 Dose: 650 mg Al Hydroxide/Mg Hydroxide (Magnesium Hydrox/Alum Hydrox 30 Ml Oral.Susp) 30 ml PO Q6H PRN PRN Reason: Heartburn/Nausea Aspirin (Aspirin 81 Mg Tab.Chew) 81 mg PO DAILY [facility] Last Admin: 05/23/25 08:05 Dose: 81 mg Atorvastatin Calcium (Atorvastatin Calcium 40 Mg Tablet) 40 mg PO DAILY [facility] Last Admin: 05/23/25 08:06 Dose: 40 mg Divalproex Sodium (Divalproex Sodium Er 500 Mg Tab.Er.24h) 500 mg PO BEDTIME [facility] Last Admin: 05/22/25 20:28 Dose: 500 mg Gabapentin (Gabapentin 300 Mg Capsule) 300 mg PO TID [facility] Last Admin: 05/23/25 08:06 Dose: 300 mg Hydrochlorothiazide (Hydrochlorothiazide 25 Mg Tablet) 25 mg PO DAILY [facility]; Protocol Last Admin: 05/23/25 08:06 Dose: 25 mg Hydroxyzine HCl (Hydroxyzine Hcl 25 Mg Tablet) 25 mg PO Q6H PRN PRN Reason: mild anxiety Last Admin: 05/23/25 08:06 Dose: 25 mg Lisinopril (Lisinopril 5 Mg Tablet) 5 mg PO DAILY [facility]; Protocol Last Admin: 05/23/25 08:06 Dose: 5 mg Loperamide HCl (Loperamide Hcl 2 Mg Capsule) 2 mg PO Q6H PRN PRN Reason: loose stool Magnesium Hydroxide (Milk Of Magnesia 30 Ml Oral.Susp) 30 ml PO DAILY PRN PRN Reason: Constipation Melatonin (Melatonin 3 Mg Tablet) 3 mg PO BEDTIME PRN PRN Reason: Insomnia Last Admin: 05/22/25 20:28 Dose: 3 mg Methadone HCl (Methadone Hcl 20 Mg/2 Ml Oral.Conc) 140 mg PO DAILY@0800 [facility] Last Admin: 05/23/25 07:59 Dose: 140 mg Modafinil (Modafinil 100 Mg Tablet) 100 mg PO DAILY [facility] Last Admin: 05/23/25 08:06 Dose: 100 mg Nicotine Polacrilex (Nicotine Polacrilex 2 Mg Gum) 4 mg BUCCAL Q2H PRN PRN Reason: Nicotine Cravings Last Admin: 05/19/25 21:03 Dose: 4 mg Omeprazole (Omeprazole 20 Mg Capsule.Dr) 20 mg PO DAILY@0630 [facility] Last Admin: 05/23/25 06:12 Dose: 20 mg Risperidone (Risperidone 3 Mg Tablet) 6 mg PO BEDTIME [facility] Last Admin: 05/22/25 20:28 Dose: 6 mg Risperidone (Risperidone 0.5 Mg Tablet) 0.5 mg PO Q4H PRN PRN Reason: voices/AH Last Admin: 05/21/25 18:15 Dose: 0.5 mg Simethicone (Simethicone 80 Mg Tab.Chew) 80 mg PO QIDWMHS PRN PRN Reason: flatulance Last Admin: 05/21/25 21:49 Dose: 80 mg Thiamine HCl (Thiamine Hcl 100 Mg Tablet) 100 mg PO DAILY [facility] Last Admin: 05/23/25 08:05 Dose: 100 mg Trazodone HCl (Trazodone Hcl 50 Mg Tablet) 150 mg PO BEDTIME [facility] Last Admin: 05/22/25 20:29 Dose: 150 mg Venlafaxine HCl (Venlafaxine Hcl Er 75 Mg Cap.Er.24h) 75 mg PO DAILY [facility] Last Admin: 05/23/25 08:06 Dose: 75 mg Allergies Allergies Allergy/AdvReac Type Severity Reaction Status Date / Time Iodinated Contrast Media Allergy Severe Anaphylaxis Verified 05/14/25 19:45 (Contrast Dye) onion Allergy Severe Anaphylaxis Verified 05/14/25 19:45 latex Allergy Unknown Verified 05/14/25 19:45 Penicillins Allergy Unknown Verified 09/12/24 17:21 shellfish derived (shellfish) Allergy Unknown Verified 05/14/25 19:45 Assessment & Plan Assessment & Plan (1) Schizoaffective disorder: Status: Acute Code(s): F25.9 - Schizoaffective disorder, unspecified (2) PTSD (post-traumatic stress disorder): Status: Acute Code(s): F43.10 - Post-traumatic stress disorder, unspecified (3) Opioid use disorder, severe, dependence: Status: Acute Code(s): F11.20 - Opioid dependence, uncomplicated (4) Cocaine abuse: Status: Acute Code(s): F14.10 - Cocaine abuse, uncomplicated (5) HTN (hypertension): Status: Acute Code(s): I10 - Essential (primary) hypertension (6) History of CVA (cerebrovascular accident): Status: Acute Code(s): Z86.73 - Personal history of transient ischemic attack (TIA), and cerebral infarction without residual deficits Plan HPI: Patient is a 55-year-old female with history of depression, PTSD, alcohol abuse, possibly schizoaffective disorder, CVA, hypertension who presents for SI with recent attempt to hang herself from a tree. Patient reports that she was doing well for years on her medications; she says she stopped them week ago but does not know why other than they make her feel other than herself... Patient became depressed, suicidal tried to end her life. She is not sure why it took her a few days to present to the ED. Patient endorses auditory hallucinations. She says she drinks about a pt of alcohol a day and is experiencing withdrawal with a history of withdrawal seizures. To this display card writer she denies other substance abuse however endorsed a nursing that she uses cocaine and heroin and her U tox was positive for both. Patient would like to get back on her medications Formulation/clinical reasoning: Patient is a limited historian; she lists medications that she was on which is different from her med rec of recent meds (medications she listed included Prozac, Wellbutrin, clonidine, trazodone and risperidone). Will treat for alcohol withdrawal; will continue with recent medication prescriptions. Not sure if patient has neurocognitive disorder. Patient reports AH which is independent of mood so will diagnose with schizoaffective disorder Hospital course: 05/16 Patient remains sleepy and mostly keeping to herself; not scoring on CIWA so discontinued. Patient continues to have AH and remains internally preoccupied also reporting depression and anxiety. Guardian Ad Litem discussed medications with her and she feels that Risperdal is more helpful than Zyprexa which was started on admission and asks for it to be switched. 05/17 Patient up and out of bed and dressed in new clothes this morning, wearing glasses. She says she is a little better. Difficult with which to engage. Says she continues to have AH and would like risperidone to be increased. -no manic symptoms and more organized will increase Risperdal 05/18 Patient says AH remain; they are little less with her still quite bothersome. She asks for Ativan to help deal with them saying they are command in nature, telling her to harm herself and she explains this is what she heard regarding recent attempt to hang herself. Patient agrees to low-dose Ativan that will only be used during this admission and not for discharge. Discussed UDS positive for cocaine and fentanyl; patient says she never uses fentanyl so cocaine must have been laced -will add Ativan 0.5 mg t.i.d. p.r.n. while she is on the unit and while Risperdal takes effect -seems that Risperdal has helped a little; will leave it at 4 mg for now to see if it has continued effect; otherwise will increase 05/19 patient reports continued AH; agrees to increasing Risperdal -attempted to get labs but phlebotomy had a difficult time 05/20 better, but still with AH; adding risperdal 0.5mg prn for AH; adding provigil for daytime sedation 05/23: continue current management and treatment plan. Monitor effects of medications. Plan: CV q15 INCREASed to Risperdal 6mg q.h.s.; may titrate Discontinue Zyprexa 5 mg q.h.s. *Time limited Ativan 0.5 mg t.i.d. p.r.n. Depakote ER 500 mg q.h.s. Gabapentin 300 mg t.i.d. Hydrochlorothiazide Venlafaxine 75 mg daily Aspirin 81 mg daily Atorvastatin 10 mg daily Methadone 140 mg daily Reason for continued inpatient stay Substantial Risk for: harm to self, inability to function and rapid decompensation Time Spent With Patient Time: Total time managing care of this patient today ____ minutes.
[2025-05-23 20:28] VITALS: BP 134/65; PULSE 76; RESP 18; TEMP 37.2; O2SAT 98
[2025-05-24 08:00] VITALS: BP 131/76; PULSE 78; RESP 18; TEMP 36.9; O2SAT 100
[2025-05-24] MEDS: methADONE HCl 20 MG/2 ML ORAL.CONC 140 MG PO (08:01)
[2025-05-24] MEDS: Venlafaxine HCl ER 75 MG CAP.ER.24H PO (08:04)
--- NOTE | 2025-05-24 09:30 | HO.PSYCHPN ---
Subjective Subjective Date of Service: 05/24/25 Reason For Visit: depressive d/o, opioid use d/o Interim History: Met with patient; discussed with team I am not allergic to onions! Patient reports she wants to eat onions and she is not allergic to them and is emphatic about that. Says her AH were better last night. She was seen out of her room. More social. Less drowsy today. Denies SI today. Review of Systems Review of Systems Denies any shortness of breath, chest pain, palpitations, dizziness, lightheadedness, headaches, dysuria, abdominal pain or discomfort, nausea, vomiting or diarrhea. Mental Status Exam Mental Status Exam Narrative: Pt is alert and oriented; behavior is isolative but a little more out in the milieu, much less drowsy; cooperative on approach: patient is not in distress; dressed in casual attire, disheveled, intermittently fecally incontinent, malodorous but does shower; mood is described as better and affect congruent, brighter, more expressive; eye contact appropriate; Speech is normal volume, rate and prosody; less psychomotor retardation present; thought process is goal directed, concrete; Thought content is treatment; no overt expression of delusional content; currently denies any SI/HI. Positive for AH but says it is less and not bothersome; Patients insight and judgment impaired but improved and likely heading toward baseline. Diagnostics Vital Signs (24Hr): Vital Signs - 24 hr 05/23/25 20:28 05/24/25 08:00 Temperature 98.9 F 98.4 F Pulse Rate 76 78 Respiratory Rate 18 18 Blood Pressure 134/65 131/76 Pulse Oximetry 98 100 Oxygen Delivery Method Room Air Room Air BMI result Body Mass Index 36.1 Labs Labs: Laboratory Results - last 48 hr 05/22/25 14:22 Urine Color Yellow Urine Appearance Clear Urine pH 7.0 Ur Specific [place] 1.015 Urine Protein Negative Urine Glucose (UA) Negative Urine Ketones Negative Urine Blood Negative Urine Nitrite Negative Ur Leukocyte Esterase Trace H Urine RBC 0-2 Urine WBC 0-5 Ur Squamous Epith Cells 0-2 Other Crystals Present Urine Bacteria Trace Hyaline Casts 3-5 Medications Medications Current Medications Acetaminophen (Acetaminophen 325 Mg Tablet) 650 mg PO Q6H PRN PRN Reason: Headache/Pain, Scale 1-10 Last Admin: 05/21/25 21:49 Dose: 650 mg Al Hydroxide/Mg Hydroxide (Magnesium Hydrox/Alum Hydrox 30 Ml Oral.Susp) 30 ml PO Q6H PRN PRN Reason: Heartburn/Nausea Aspirin (Aspirin 81 Mg Tab.Chew) 81 mg PO DAILY [facility] Last Admin: 05/24/25 08:04 Dose: 81 mg Atorvastatin Calcium (Atorvastatin Calcium 40 Mg Tablet) 40 mg PO DAILY [facility] Last Admin: 05/24/25 08:04 Dose: 40 mg Divalproex Sodium (Divalproex Sodium Er 500 Mg Tab.Er.24h) 500 mg PO BEDTIME [facility] Last Admin: 05/23/25 20:24 Dose: 500 mg Gabapentin (Gabapentin 300 Mg Capsule) 300 mg PO TID [facility] Last Admin: 05/24/25 08:05 Dose: 300 mg Hydrochlorothiazide (Hydrochlorothiazide 25 Mg Tablet) 25 mg PO DAILY [facility]; Protocol Last Admin: 05/24/25 08:04 Dose: 25 mg Hydroxyzine HCl (Hydroxyzine Hcl 25 Mg Tablet) 25 mg PO Q6H PRN PRN Reason: mild anxiety Last Admin: 05/23/25 18:38 Dose: 25 mg Lisinopril (Lisinopril 5 Mg Tablet) 5 mg PO DAILY [facility]; Protocol Last Admin: 05/24/25 08:04 Dose: 5 mg Loperamide HCl (Loperamide Hcl 2 Mg Capsule) 2 mg PO Q6H PRN PRN Reason: loose stool Magnesium Hydroxide (Milk Of Magnesia 30 Ml Oral.Susp) 30 ml PO DAILY PRN PRN Reason: Constipation Melatonin (Melatonin 3 Mg Tablet) 3 mg PO BEDTIME PRN PRN Reason: Insomnia Last Admin: 05/23/25 20:27 Dose: 3 mg Methadone HCl (Methadone Hcl 20 Mg/2 Ml Oral.Conc) 140 mg PO DAILY@0800 [facility] Last Admin: 05/24/25 08:01 Dose: 140 mg Modafinil (Modafinil 100 Mg Tablet) 100 mg PO DAILY [facility] Last Admin: 05/24/25 08:04 Dose: 100 mg Nicotine Polacrilex (Nicotine Polacrilex 2 Mg Gum) 4 mg BUCCAL Q2H PRN PRN Reason: Nicotine Cravings Last Admin: 05/24/25 08:21 Dose: 4 mg Omeprazole (Omeprazole 20 Mg Capsule.Dr) 20 mg PO DAILY@0630 [facility] Last Admin: 05/24/25 06:30 Dose: 20 mg Risperidone (Risperidone 3 Mg Tablet) 6 mg PO BEDTIME [facility] Last Admin: 05/23/25 20:25 Dose: 6 mg Risperidone (Risperidone 0.5 Mg Tablet) 0.5 mg PO Q4H PRN PRN Reason: voices/AH Last Admin: 05/23/25 18:38 Dose: 0.5 mg Simethicone (Simethicone 80 Mg Tab.Chew) 80 mg PO QIDWMHS PRN PRN Reason: flatulance Last Admin: 05/21/25 21:49 Dose: 80 mg Thiamine HCl (Thiamine Hcl 100 Mg Tablet) 100 mg PO DAILY [facility] Last Admin: 05/24/25 08:05 Dose: 100 mg Trazodone HCl (Trazodone Hcl 50 Mg Tablet) 150 mg PO BEDTIME [facility] Last Admin: 05/23/25 20:24 Dose: 150 mg Venlafaxine HCl (Venlafaxine Hcl Er 75 Mg Cap.Er.24h) 75 mg PO DAILY [facility] Last Admin: 05/24/25 08:04 Dose: 75 mg Allergies Allergies Allergy/AdvReac Type Severity Reaction Status Date / Time Iodinated Contrast Media Allergy Severe Anaphylaxis Verified 05/14/25 19:45 (Contrast Dye) onion Allergy Severe Anaphylaxis Verified 05/14/25 19:45 latex Allergy Unknown Verified 05/14/25 19:45 Penicillins Allergy Unknown Verified 09/12/24 17:21 shellfish derived (shellfish) Allergy Unknown Verified 05/14/25 19:45 Assessment & Plan Assessment & Plan (1) Schizoaffective disorder: Status: Acute Code(s): F25.9 - Schizoaffective disorder, unspecified (2) PTSD (post-traumatic stress disorder): Status: Acute Code(s): F43.10 - Post-traumatic stress disorder, unspecified (3) Opioid use disorder, severe, dependence: Status: Acute Code(s): F11.20 - Opioid dependence, uncomplicated (4) Cocaine abuse: Status: Acute Code(s): F14.10 - Cocaine abuse, uncomplicated (5) HTN (hypertension): Status: Acute Code(s): I10 - Essential (primary) hypertension (6) History of CVA (cerebrovascular accident): Status: Acute Code(s): Z86.73 - Personal history of transient ischemic attack (TIA), and cerebral infarction without residual deficits Plan HPI: Patient is a 55-year-old female with history of depression, PTSD, alcohol abuse, possibly schizoaffective disorder, CVA, hypertension who presents for SI with recent attempt to hang herself from a tree. Patient reports that she was doing well for years on her medications; she says she stopped them week ago but does not know why other than they make her feel other than herself... Patient became depressed, suicidal tried to end her life. She is not sure why it took her a few days to present to the ED. Patient endorses auditory hallucinations. She says she drinks about a pt of alcohol a day and is experiencing withdrawal with a history of withdrawal seizures. To this typewriter mechanic she denies other substance abuse however endorsed a nursing that she uses cocaine and heroin and her U tox was positive for both. Patient would like to get back on her medications Formulation/clinical reasoning: Patient is a limited historian; she lists medications that she was on which is different from her med rec of recent meds (medications she listed included Prozac, Wellbutrin, clonidine, trazodone and risperidone). Will treat for alcohol withdrawal; will continue with recent medication prescriptions. Not sure if patient has neurocognitive disorder. Patient reports AH which is independent of mood so will diagnose with schizoaffective disorder Hospital course: 05/16 Patient remains sleepy and mostly keeping to herself; not scoring on CIWA so discontinued. Patient continues to have AH and remains internally preoccupied also reporting depression and anxiety. Industrial Psychologist discussed medications with her and she feels that Risperdal is more helpful than Zyprexa which was started on admission and asks for it to be switched. 05/17 Patient up and out of bed and dressed in new clothes this morning, wearing glasses. She says she is a little better. Difficult with which to engage. Says she continues to have AH and would like risperidone to be increased. -no manic symptoms and more organized will increase Risperdal 05/18 Patient says AH remain; they are little less with her still quite bothersome. She asks for Ativan to help deal with them saying they are command in nature, telling her to harm herself and she explains this is what she heard regarding recent attempt to hang herself. Patient agrees to low-dose Ativan that will only be used during this admission and not for discharge. Discussed UDS positive for cocaine and fentanyl; patient says she never uses fentanyl so cocaine must have been laced -will add Ativan 0.5 mg t.i.d. p.r.n. while she is on the unit and while Risperdal takes effect -seems that Risperdal has helped a little; will leave it at 4 mg for now to see if it has continued effect; otherwise will increase 05/19 patient reports continued AH; agrees to increasing Risperdal -attempted to get labs but phlebotomy had a difficult time 05/20 better, but still with AH; adding risperdal 0.5mg prn for AH; adding provigil for daytime sedation 05/23: continue current management and treatment plan. Monitor effects of medications. 05/24: continue current management and treatment plan. Plan: CV q15 INCREASed to Risperdal 6mg q.h.s.; may titrate Discontinue Zyprexa 5 mg q.h.s. *Time limited Ativan 0.5 mg t.i.d. p.r.n. Depakote ER 500 mg q.h.s. Gabapentin 300 mg t.i.d. Hydrochlorothiazide Venlafaxine 75 mg daily Aspirin 81 mg daily Atorvastatin 10 mg daily Methadone 140 mg daily Reason for continued inpatient stay Substantial Risk for: inability to function and rapid decompensation Time Spent With Patient Time: Total time managing care of this patient today ____ minutes.
[2025-05-24 19:55] VITALS: BP 135/85; PULSE 85; RESP 15; TEMP 37.1; O2SAT 97
[2025-05-25] MEDS: methADONE HCl 20 MG/2 ML ORAL.CONC 140 MG PO (07:50)
[2025-05-25 08:00] VITALS: BP 107/73; PULSE 84; RESP 16; TEMP 2.7; TEMP 36.8; O2SAT 97
[2025-05-25] MEDS: Venlafaxine HCl ER 75 MG CAP.ER.24H PO (08:16)
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
[2025-05-25 20:00] VITALS: BP 139/72; PULSE 72; RESP 16; TEMP 36.6; O2SAT 96
[2025-05-26] MEDS: methADONE HCl 20 MG/2 ML ORAL.CONC 140 MG PO (07:56)
[2025-05-26 08:00] VITALS: BP 120/66; PULSE 76; RESP 16; TEMP 36.8; O2SAT 96
[2025-05-26] MEDS: Venlafaxine HCl ER 75 MG CAP.ER.24H PO (08:58)
--- NOTE | 2025-05-26 13:09 | P.DS_ITS ---
DS: Providers Provider Date of Service: 05/26/25 Date of admission: 05/14/25 15:43 Date of discharge: 05/26/25 Primary care physician: None Physician Attending physician on admission: Mati Sierra Consults: 05/14/25 16:32 Consult to Hospitalist Routine Comment: Consulting Provider: [facility] [place] Hospitalists Reason For Exam: Transfer pt Attending physician on discharge: Mati Sierra DS: Diagnosis Discharge Diagnosis (1) Schizoaffective disorder: Status: Acute (2) PTSD (post-traumatic stress disorder): Status: Acute (3) Opioid use disorder, severe, dependence: Status: Inactive (4) Cocaine abuse: Status: Acute (5) HTN (hypertension): Status: Acute (6) History of CVA (cerebrovascular accident): Status: Acute DS: Medications Discharge Medications Home Medications: Home Medications ?Medication ?Instructions ?Recorded ?Confirmed valacyclovir 500 mg tablet 500 mg PO USEASDIRECTD 02/2705/14/25 methadone 10 mg/mL oral 140 mg PO DAILY 05/14/2504/30 concentrate (Methadose) Previous Rx's ?Medication ?Instructions ?Recorded albuterol sulfate 90 mcg/actuation 90 mcg inhalation Q ID PRN 05/26/25 aerosol inhaler (Ventolin HFA) Shortness Of Breath Or Wheezing 30 days #6.7 grams aspirin 81 mg tablet,delayed 81 mg PO DAILY 30 days #3 0 tabs 05/26/25 release atorvastatin 40 mg tablet 40 mg PO DAILY 30 days #30 t abs 05/26/25 divalproex 500 mg tablet,extended 500 mg PO BEDTIME 30 days #30 tabs 05/26/25 release 24 hr fluticasone propionate 110 110 mcg inhalation BID 30 d ays #12 05/26/25 mcg/actuation HFA aerosol inhaler grams gabapentin 300 mg capsule 300 mg PO TID 30 days #90 ca ps 05/26/25 hydrochlorothiazide 25 mg tablet 25 mg PO DAILY 30 day s #30 tabs 05/26/25 hydroxyzine HCl 25 mg tablet 25 mg PO Q6H PRN mild anx iety 30 05/26/25 days #60 tabs lisinopril 5 mg tablet 5 mg PO DAILY 30 days #30 ta bs 05/26/25 modafinil 100 mg tablet (Provigil) 100 mg PO DAILY 30 days #30 tabs 10/21/25 nicotine (polacrilex) 4 mg gum 4 mg buccal Q2H 30 days #100 ea 05/26/25 pantoprazole 40 mg tablet,delayed 40 mg PO DAILY 30 da ys #30 tabs 05/26/25 release risperidone 3 mg tablet 6 mg (2 x 3 mg) PO BEDTIME 3 0 days 05/26/25 #60 tabs simethicone 80 mg chewable tablet 80 mg PO QIDWMHS PRN flatulance 30 05/26/25 days #90 tabs trazodone 150 mg tablet 150 mg PO BEDTIME 30 days #3 0 tabs 05/26/25 venlafaxine 75 mg capsule,extended 75 mg PO DAILY 30 d ays #30 caps 05/26/25 release 24 hr Data Data Completed and Pending Completed studies during hospitalization [Text1]: 05/21/25 05/22/25 08:46 14:22 Total Bilirubin 0.7 Direct Bilirubin 0.3 AST 21 ALT 16 Alkaline Phosphatase 86 Ammonia 52 Total Protein 7.1 Albumin 3.9 Urine Color Yellow Urine Appearance Clear Urine pH 7.0 Ur Specific [place] 1.015 Urine Protein Negative Urine Glucose (UA) Negative Urine Ketones Negative Urine Blood Negative Urine Nitrite Negative Ur Leukocyte Esterase Trace H Urine RBC 0-2 Urine WBC 0-5 Ur Squamous Epith Cells 0-2 Other Crystals Present Urine Bacteria Trace Hyaline Casts 3-5 Valproic Acid 19.9 L DS: Summary Hospital Course Hospital Course: HPI: Patient is a 55-year-old female with history of depression, PTSD, alcohol abuse, possibly schizoaffective disorder, CVA, hypertension who presents for SI with recent attempt to hang herself from a tree. Patient reports that she was doing well for years on her medications; she says she stopped them week ago but does not know why other than they make her feel other than herself... Patient became depressed, suicidal tried to end her life. She is not sure why it took her a few days to present to the ED. Patient endorses auditory hallucinations. She says she drinks about a pt of alcohol a day and is experiencing withdrawal with a history of withdrawal seizures. To this sports book writer she denies other substance abuse however endorsed a nursing that she uses cocaine and heroin and her U tox was positive for both. Patient would like to get back on her medications Formulation/clinical reasoning: Patient is a limited historian; she lists medications that she was on which is different from her med rec of recent meds (medications she listed included Prozac, Wellbutrin, clonidine, trazodone and risperidone). Will treat for alcohol withdrawal; will continue with recent medication prescriptions. Not sure if patient has neurocognitive disorder. Patient reports AH which is independent of mood so will diagnose with schizoaffective disorder Hospital course: 05/16 Patient remains sleepy and mostly keeping to herself; not scoring on CIWA so discontinued. Patient continues to have AH and remains internally preoccupied also reporting depression and anxiety. [employer] Consultant discussed medications with her and she feels that Risperdal is more helpful than Zyprexa which was started on admission and asks for it to be switched. 05/17 Patient up and out of bed and dressed in new clothes this morning, wearing glasses. She says she is a little better. Difficult with which to engage. Says she continues to have AH and would like risperidone to be increased. -no manic symptoms and more organized will increase Risperdal 05/18 Patient says AH remain; they are little less with her still quite bothersome. She asks for Ativan to help deal with them saying they are command in nature, telling her to harm herself and she explains this is what she heard regarding recent attempt to hang herself. Patient agrees to low-dose Ativan that will only be used during this admission and not for discharge. Discussed UDS positive for cocaine and fentanyl; patient says she never uses fentanyl so cocaine must have been laced -will add Ativan 0.5 mg t.i.d. p.r.n. while she is on the unit and while Risperdal takes effect -seems that Risperdal has helped a little; will leave it at 4 mg for now to see if it has continued effect; otherwise will increase 05/19 patient reports continued AH; agrees to increasing Risperdal -attempted to get labs but phlebotomy had a difficult time 05/20 better, but still with AH; adding risperdal 0.5mg prn for AH; adding provigil for daytime sedation 05/22 improving; continue plan; discussed with nursing about kitchen privs 05/25 remains improved, feeling better; at baseline Plan: CV q15 Continue Risperdal 6mg q.h.s.; may titrate Discontinue Zyprexa 5 mg q.h.s. *Time limited Ativan 0.5 mg t.i.d. p.r.n. Depakote ER 500 mg q.h.s. Gabapentin 300 mg t.i.d. Hydrochlorothiazide Venlafaxine 75 mg daily Aspirin 81 mg daily Atorvastatin 10 mg daily Methadone 140 mg daily Patient educated on: diagnosis Informed Consent: understands Reason for continued inpatient stay Substantial Risk for: stable for discharge Time Spent with Patient Time attestation: Total time managing care of this patient today ____ minutes. Discharge Plan Discharge Anticipated Discharge Date/Time: 05/26/25 13:09 Patient Disposition: Home, Self-Care Discharge Diagnosis: Schizoaffective disorder [facility] [Other] - 05/28/25 3:30 pm Referral Note: *Follow-up intake/therapy appointment. Once you complete this appointment you are eligible for medication management. Physician,None [Primary Care Provider, Medical] - 1 Week Discharge Medications: New nicotine (polacrilex) 4 mg gum 4 mg buccal Q2H 30 Days Qty: 100 0RF lisinopril 5 mg Tablet 5 mg PO DAILY 30 Days Qty: 30 0RF Protocol: Hold for SBP< HOLD for SBP < : 90 hydroxyzine HCl 25 mg Tablet 25 mg PO Q6H PRN (Reason: mild anxiety) 30 Days Qty: 60 0RF modafinil [Provigil] 100 mg Tablet 100 mg PO DAILY 30 Days Qty: 30 0RF risperidone 3 mg Tablet 6 mg PO BEDTIME 30 Days Qty: 60 0RF simethicone 80 mg Tablet,Chewable 80 mg PO QIDWMHS PRN (Reason: flatulance) 30 Days Qty: 90 0RF Continued valacyclovir 500 mg tablet 500 mg PO USEASDIRECTD Patient Comments: Patient does confirm she is on this but is on her medical record as of 08/26/24 methadone [Methadose] 10 mg/mL concentrate 140 mg PO DAILY Rx Instructions: Partial Fill upon patient request. atorvastatin 40 mg tablet 40 mg PO DAILY 30 Days Qty: 30 0RF venlafaxine 75 mg capsule,extended release 24hr 75 mg PO DAILY 30 Days Qty: 30 0RF aspirin 81 mg tablet,delayed release (DR/EC) 81 mg PO DAILY 30 Days Qty: 30 0RF pantoprazole 40 mg tablet,delayed release (DR/EC) 40 mg PO DAILY 30 Days Qty: 30 0RF divalproex 500 mg tablet extended release 24 hr 500 mg PO BEDTIME 30 Days Qty: 30 0RF gabapentin 300 mg capsule 300 mg PO TID 30 Days Qty: 90 0RF hydrochlorothiazide 25 mg tablet 25 mg PO DAILY 30 Days Qty: 30 0RF albuterol sulfate [Ventolin HFA] 90 mcg/actuation HFA aerosol inhaler 90 mcg INHALATION QID PRN (Reason: Shortness Of Breath Or Wheezing) 30 Days Qty: 6.7 1RF fluticasone propionate 110 mcg/actuation HFA aerosol inhaler 110 mcg INHALATION BID 30 Days Qty: 12 0RF Changed trazodone 150 mg tablet 150 mg PO BEDTIME 30 Days Qty: 30 0RF Discontinued clonidine HCl 0.1 mg tablet 0.1 mg 3XD Patient Comments: Patient does confirm she is on this but is on her medical record as of 08/26/24 olanzapine 5 mg tablet 5 mg PO BEDTIME 30 Days Qty: 30 0RF Discharge Orders: Discharge Order (Routine); Ordered 05/26/25 Ordered By: Mati Sierra Diet: Regular diet Activity on Discharge: As tolerated Stand Alone Forms: Patient Portal Discharge page, Community Support Print Language: Dominican Care Plan Goals: Maintain mood and safe behaviors Take medications as prescribed Continue to pursue sobriety Practice coping skills Continue with outpatient providers and reach out to them as needed Health Concerns: Mood stability and behaviors Sobriety hx CVA Hyperlipidemia Hypertension Plan of Treatment: Follow up with your PCP, psychiatric provider and other outpatient providers regarding above concerns Take medications as prescribed Assessment: Risk assessment at time of discharge:? Patient was interviewed prior to discharge and found to be fully oriented and denied any SI. Patient has improved insight and judgment and wants to continue treatment. Patient is not in imminent risk of harm to self or others and has a safety plan that includes presenting to the closest ER or calling 911 if feeling unsafe.? Patient has been observed closely by nursing and unit staff throughout admission; patient has not engaged in any behaviors that suggest dangerousness to self or others and has demonstrated appropriate behaviors and impulse control Discharge Date/Time: 05/26/25 14:00
[2025-05-26] MEDS: Naloxone HCl Nasal TAKE HOME 4 MG SPRAY 8 MG NOSTRILALT (13:37)
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
== END 2025-05-26 14:00 | disposition home or self-care (01) | DRG 750 ==
PROVIDERS: Clinical Nurse Specialist Psychiatric/Mental Health, Adult; Admitting Provider Psychiatry & Neurology Psychiatry; Visit Provider Psychiatry & Neurology Psychiatry
DX: F25.9 Schizoaffective disorder, unspecified (principal); R45.851 Suicidal ideations; E11.9 Type 2 diabetes mellitus without complications; F11.20 Opioid dependence, uncomplicated; I10 Essential (primary) hypertension; F43.10 Post-traumatic stress disorder, unspecified; F14.10 Cocaine abuse, uncomplicated; J45.40 Moderate persistent asthma, uncomplicated; F17.210 Nicotine dependence, cigarettes, uncomplicated; Z71.6 Tobacco abuse counseling; Z86.19 Personal history of other infectious and parasitic diseases; Z91.51 Personal history of suicidal behavior; Z86.73 Personal history of transient ischemic attack (TIA), and cerebral infarction without residual deficits; Z79.82 Long term (current) use of aspirin; Z79.899 Other long term (current) drug therapy
CPT/HCPCS: 36415; 80061; 80076; 80164; 81001; 82140; 82607; 82746; 83036; 84439; 84443

== ENCOUNTER → 2025-05-14 15:43 | Outpatient (BNV) | payer OTHER, SELFPAY | PROVIDERS: Admitting Provider Psychiatry & Neurology Psychiatry; Visit Provider Psychiatry & Neurology Psychiatry | DX: F25.1 Schizoaffective disorder, depressive type (principal); F14.10 Cocaine abuse, uncomplicated; F11.20 Opioid dependence, uncomplicated; F43.11 Post-traumatic stress disorder, acute; I10 Essential (primary) hypertension; Z86.73 Personal history of transient ischemic attack (TIA), and cerebral infarction without residual deficits | CPT/HCPCS: 90792; 99232 ==

== ENCOUNTER → 2025-05-14 15:43 | Outpatient (BNV) | payer OTHER, SELFPAY | PROVIDERS: Admitting Provider Psychiatry & Neurology Psychiatry; Visit Provider Physician Assistant | DX: I10 Essential (primary) hypertension (principal) | CPT/HCPCS: 99221; 99499 ==